=== PATIENT | female | born 1935 | race Caucasian/White ===

== ENCOUNTER → 2017-04-21 | Outpatient (CLI) | payer MEDICARE, OTHER ==
[~2017-04-21] MED LIST: ACYC5CRE2 TP; ALPR0.25 PO; AZEL137S3 NS; FAMO-63 PO; FLUT9.9S NS; LOSA50TA2 PO; MUPI15CR TP; OLOP5DRO EACHEYE; TIZA4TAB PO; UBID100C26 PO; VALA10005 PO; lidoderm patch
--- NOTE | 2017-04-21 17:32 | PAIN ---
DATE OF SERVICE: 04/21/2017 INITIAL CONSULTATION FOR PAIN CLINIC. CHIEF COMPLAINT: Low back pain. SECONDARY COMPLAINT: Neck and shoulder pain. HISTORY OF PRESENT ILLNESS: This is an 81-year-old female who presents with history of pain for about 2 years, increasing without a specific injury or action that she is aware of, increasing in the low back especially, but also in the neck and shoulders, with radiation in the bilateral upper extremities, mostly in the posterior aspect of the triceps and elbows, also radiation in the low back into the posterior gluteus and lateral thighs with activity, worse with walking and standing, change in positions, worse in the morning when she first wakes up, but she sleeps well at night. It is better with sitting down or lying down, and again, her low back pain is her chief complaint today. The patient reports she is using a cane to walk with holding in her right hand, also using pain patches and some pain spray that seems to help by about 20% as well. The patient did have physical therapy on and off that she is having it currently, but is mainly just stretching and strengthening exercises as she has been doing by her report. The patient reports the pain is across the shoulders and the upper extremities is noted as well as low back and lower extremities is noted, intermittent intensity, changes during the day, worse with activity, standing, walking, also sharp, stabbing, throbbing, can be cramping and aching as well, again worse in the mornings. 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 The patient reports no loss of motor function, but she seems unstable on her feet and feels out of balance when she is walking when the pain is at its worse. Again, sitting or lying down would decrease the pain significantly. PAST MEDICAL HISTORY: Significant for hypertension, arthritis, gastroesophageal reflux. PREVIOUS SURGERY: Includes partial hysterectomy, appendectomy. CURRENT MEDICATIONS: Outlines in the patient's chart including acyclovir, alprazolam, Astelin nasal spray, Q-enzyme 10, Vibramycin, fluticasone, famotidine, ketoconazole, lidocaine, losartan, mupirocin, Bactroban ointment, atenolol ophthalmic drops, sodium chloride nasal spray, tizanidine and Valtrex. ALLERGIES: ALLERGIC TO AMLODIPINE, CITALOPRAM, LISINOPRIL, PENICILLIN, METOPROLOL. FAMILY HISTORY: Significant for no major medical problems or conditions that she is aware of. SOCIAL HISTORY: The patient does not drink, does not smoke. She is , lives in [place], [place], is currently retired. REVIEW OF SYSTEMS: The patient's review of systems is positive for those items mentioned in history of present illness. All systems reviewed and otherwise negative. It is complete, full and well documented on the patient's chart. PHYSICAL EXAMINATION: VITAL SIGNS: Today, blood pressure is 158/90, pulse 72, respirations 16, temperature is 98.0 degrees Fahrenheit. Height is 5 feet 5 inches, weight is 154 pounds. GENERAL: The patient is awake, alert, oriented, appropriate, very pleasant demeanor. HEENT: Head shows normocephalic, atraumatic. Extraocular movements are intact, symmetrical. Oral cavity, mucous membranes are moist and pink. Dentition is intact. NECK: Shows anterior throat supple without palpable lymphadenopathy noted. Swallow reflex is symmetrical. CHEST: Shows normal on inspection. Breath sounds clear to auscultation bilaterally. HEART: Shows S1 and S2 clear. No murmurs auscultated. ABDOMEN: Soft, nontender, nondistended. No palpable organomegaly. No rebound or guarding demonstrated. BACK: Shows spine grossly in midline, normal-appearing cervical lordotic curvature, thoracic kyphotic curvature, and lumbar lordotic curvatures. The patient's neck shows posterior cervical musculature, symmetrical on inspection, with palpation shows some moderate tenderness in the inferior aspect of the cervical paraspinous musculature into the superior medial trapezius, right essentially equal to left and is symmetrical without evidence of atrophy, hypertrophy, no radiation of pain, no trigger points. The thoracic spine shows supple paraspinous musculature without significant pain reported. Lumbar distribution shows some moderate tenderness throughout the upper, middle and lower distribution of the paraspinous musculature, although has not had significant tenderness over the spinous processes, even at the low thoracic distribution in the area of her compression fracture very mildly tender with palpation. The patient has some tenderness in the lower lumbar distribution more than the upper, diffusely in the paraspinous muscles, but without radiation. The patient has no tenderness over the sacrum or sacroiliac regions. The patient shows good rotation and motion of the lumbar spine, both laterally greater than 10 degrees right and left as well as extension greater than 10 degrees, forward flexion 45 degrees without significant pain reported. The patient's neck shows good rotation past 45 degrees, right and left lateral as well as full extension and full forward flexion as well. The patient's extremities showed upper extremity deep tendon reflexes 2+ in the biceps and triceps tendons. Motor exam is approximately 4 on a scale 5 with board certified orthodontist strength, biceps and triceps flexion, but is symmetrical and equal. Peripheral pulses are 2+ radial distribution. Lower extremities showed deep tendon reflexes 1+ in the patellar tendons. Motor exam is strong with dorsiflexion, extension, quadriceps and hamstring flexion at about 4 on a scale of 5, but again symmetrical. Peripheral pulses are 1+ posterior tibial and dorsalis pedis pulses. No peripheral edema is noted in any of the extremities. Straight leg raise found to be negative for reproduction of radicular symptoms. [place] and Gray maneuvers are negative bilaterally as well. The patient is able to stand, stand on her toes, but loses balance fairly quickly. She is walking with a normal appearing gait, however and again does not have her cane with her today, but reports that she does use one when she is going longer distances, has a slight shuffling in her gait, but does not appear to favor the right or left lower extremity significantly. IMPRESSION: 1. This is an 81-year-old female with approximately 2-year history of increasing pain in the base of the neck and shoulders as well as the upper extremities in a radicular fashion, also low back pain in radicular qualities in the lower extremities as well. 2. X-rays of the cervical and lumbar spine as noted. 3. Hypertension. 4. Arthritis. PLAN: Options were discussed with the patient including conservative medical management, physical therapy, interventional techniques. She would like to follow more conservative course at this time. We discussed adding some cervical and lumbar traction to her physical therapy regimen, and she would like to try this prior to considering any interventional techniques. We did discuss possible lumbar and cervical epidural steroid injections in the future, but we will go with the more conservative route with physical therapy and adding traction. The patient was encouraged to complete the exercises and do them at home as well. She will follow up once physical therapy has been completed. VIDHYA MCCRACKEN MD DR: CASSIDY/sandra JOB#: [id number] / [id number]
== END | disposition home or self-care (01) ==
LOC: PNCL 10:08
PROVIDERS: ATTEND Anesthesiology
DX: M51.36 Other intervertebral disc degeneration, lumbar region (principal); I10 Essential (primary) hypertension; K21.9 Gastro-esophageal reflux disease without esophagitis; M46.86 Other specified inflammatory spondylopathies, lumbar region; M43.16 Spondylolisthesis, lumbar region
CPT/HCPCS: G0463

== ENCOUNTER 2020-02-20 15:01 | Inpatient (IN) | payer MEDICARE, OTHER ==
[~2020-02-20] VITALS: Ht 167.6 cm; Wt 53.0 kg
[~2020-02-20 15:01] MED LIST changes: +LOSA-73 PO; -LOSA50TA2 PO; -TIZA4TAB PO; +TIZA4TAB2 PO
[2020-02-20 15:32] LABS: BILIRUBIN,URINE NEGATIVE (NEG); CLARITY,URINE CLOUDY; COLOR,URINE YELLOW; NITRITE,URINE POSITIVE (NEG); PROTEIN,URINE NEGATIVE (NEG-TRACE); UROBILINOGEN,URINE 0.2 mg/dL (0.2 mg/dL)
[2020-02-20 15:34] LABS: BASO # 0.1 x10^3/uL (0.0-0.2); BASO % 0 % (0-3); EOS % 0 % (0-3); HEMATOCRIT 36.8 % (36.0-47.0); LYMPH # 0.4 x10^3/uL (1.0-4.8); LYMPH % 2 % (24-48); MEAN CORPUSCULAR HEMOGLOBIN 29 pg (25-35); MEAN CORPUSCULAR HGB CONC 33 g/dL (31-37); MEAN CORPUSCULAR VOLUME 88 fL (79-100); MONO # 0.7 x10^3/uL (0.0-1.1); MONO % 4 % (0-9); NEUT # 17.1 x10^3/uL (1.8-7.7); NEUT % 93 % (31-73); PLATELET COUNT 373 x10^3/uL (140-400); RED BLOOD COUNT 4.17 x10^6/uL (3.50-5.40); RED CELL DISTRIBUTION WIDTH 13.2 % (11.5-14.5); WHITE BLOOD COUNT 18.3 x10^3/uL (4.0-11.0)
[2020-02-20 15:40] LABS: PROTHROMBIN TIME PATIENT 13.2 SEC (11.7-14.0)
[2020-02-20 15:45] LABS: BACTERIA,URINE MANY /HPF (0-FEW); RBC,URINE 0 /HPF (0-2); SQUAMOUS EPITHELIAL CELL,UR MANY /LPF
[2020-02-20] MEDS ORDERED: ONDANSETRON PF 4 MG/2 ML VIAL. IVP ONE (15:45)
[2020-02-20] MEDS ORDERED: MORPHINE SULFATE 10 MG/ML VIAL. IV ONE ×2 (15:45→18:15)
[2020-02-20 15:46] LABS: WBC,URINE >40 /HPF (0-4)
--- NOTE | 2020-02-20 15:48 | RAD ---
EXAM: Chest, single view. HISTORY: Fall. COMPARISON: None. FINDINGS: A frontal view of the chest is obtained. There is chronic appearing diffuse increased interstitial opacity. There is superimposed left lower lobe infiltrate or scarring. There are chronic appearing right rib fractures. The heart is normal in size. There is no pneumothorax or pleural effusion. There is a small nodular opacity overlying the left costophrenic angle. IMPRESSION: 1. Suspected left lower lobe infiltrate or scarring superimposed on chronic interstitial prominence. 2. Multiple chronic appearing rib fractures. 3. Small nodular opacity overlying the left costophrenic angle. Short-term radiographic follow-up can be performed to exclude a noncalcified nodule in this location. Electronically signed by: Mica Allen MD (02/20/2020 3:45 PM) [id number]
[2020-02-20 15:50] LABS: CALCIUM 8.9 mg/dL (8.5-10.1); CREATININE 0.7 mg/dL (0.6-1.0); GFR 79.5; POTASSIUM 3.9 mmol/L (3.5-5.1)
--- NOTE | 2020-02-20 15:55 | RAD ---
Study: CR HIP LEFT 2V WITH PELVIS Indication: Pain after a fall. Comparison: None. Findings: Comminuted/angulated left femur intertrochanteric fracture. The femoral neck is horizontal and creates a 90 degrees angle with the femoral shaft. Displacement of both the greater and lesser trochanters. The fractured intertrochanteric region is somewhat hyperlucent. The femoral head remains seated within the acetabulum. Incomplete assessment of the sacrum due to osteopenia and bowel gas. Age-indeterminate compression deformity at what is favored to be L4. Impression: 1. Acute left intertrochanteric femur fracture, detailed above. 2. The intertrochanteric left femur appears hyperlucent but this is indeterminant given the degree of fracturing. No lytic osseous lesion is seen throughout the rest of the partially assessed pelvis but recommend correlation for any known malignancy to suggest a pathologic fracture. 3. Age indeterminant compression deformity of L4. Electronically signed by: TREVOR HOBBS MD (02/20/2020 3:52 PM) [id number]
[2020-02-20 15:57] LABS: % BANDS 4 % (0-9); % LYMPHS 1 % (24-48); % MONOS 3 % (0-10); % SEGS 92 % (35-66); PLT ESTIMATE ADEQUATE (ADEQUATE)
[2020-02-20 16:02] LABS: ALBUMIN 3.6 g/dL (3.4-5.0); ALBUMIN/GLOBULIN RATIO 1.2 (1.0-1.7); MAGNESIUM 2.2 mg/dL (1.8-2.4); TOTAL BILIRUBIN 0.3 mg/dL (0.2-1.0); TOTAL PROTEIN 6.6 g/dL (6.4-8.2)
--- NOTE | 2020-02-20 16:30 | PHYS DOC ---
Past Medical History Past Medical History: Dementia, Hypertension, UTI Additional Past Medical Histor: FREQUENT FALLS Past Surgical History: Other Additional Past Surgical Histo: UNKNOWN Smoking Status: Never Smoker Alcohol Use: None General Adult EDM: Chief Complaint: HIP PAIN HPI: HPI: Patient is a 84 year old female with history of dementia, hypertension, who [facility] to be evaluated for left hip fracture. senior living staff report patient fell in her room, it was a witnessed fall. Patient states she was making her bed and fell. Patient denies any loss of consciousness. senior living staff stated patient did not have any loss of consciousness when she fell. They deny patient hitting her head on the ground. Review of Systems: Review of Systems: Constitutional: Denies fever or chills. [] Eyes: Denies change in visual acuity. [] HENT: Denies nasal congestion or sore throat. [] Respiratory: Denies cough or shortness of breath. [] Cardiovascular: Denies chest pain or edema. [] GI: Denies abdominal pain, nausea, vomiting, bloody stools or diarrhea. [] : Denies dysuria. [] Musculoskeletal: Left hip fracture Integument: Denies rash. [] Neurologic: Denies headache, focal weakness or sensory changes. [] Psychiatric: Denies depression or anxiety. [] Heart Score: Risk Factors: Risk Factors: DM, Current or recent (<one month) smoker, HTN, HLP, family history of CAD, obesity. Risk Scores: Score 0 - 3: 2.5% MACE over next 6 weeks - Discharge Home Score 4 - 6: 20.3% MACE over next 6 weeks - Admit for Clinical Observation Score 7 - 10: 72.7% MACE over next 6 weeks - Early Invasive Strategies Current Medications: Current Medications Medications (Trade) Dose Ordered Sig/Lesly Start Time Stop Time Status Last Admin Dose Admin Morphine Sulfate (Morphine Sulfate) 5 mg 1X ONCE 02/20/20 15:45 02/20/20 15:46 DC 02/20/20 16:17 5 MG Ondansetron HCl (Zofran) 4 mg 1X ONCE 02/20/20 15:45 02/20/20 15:46 DC 02/20/20 16:17 4 MG Allergies: Allergies: Allergies Coded Allergies Type Severity Reaction Last Updated Verified Penicillins Allergy Unknown 02/20/20 Yes amlodipine Allergy Unknown 02/20/20 Yes citalopram Allergy Unknown 02/20/20 Yes lisinopril Allergy Unknown 02/20/20 Yes metoprolol Allergy Unknown 02/20/20 Yes nitrofurantoin Allergy Unknown 02/20/20 Yes Physical Exam: PE: Constitutional: Well developed, well nourished, no acute distress, non-toxic appearance. [] HENT: Normocephalic, atraumatic, bilateral external ears normal, oropharynx moist, no oral exudates, nose normal. [] Eyes: PERRLA, EOMI, conjunctiva normal, no discharge. [] Neck: Normal range of motion, no tenderness, supple, no stridor. [] Cardiovascular:Heart rate regular rhythm, no murmur [] Lungs & Thorax: Bilateral breath sounds clear to auscultation [] Abdomen: Bowel sounds normal, soft, no tenderness, no masses, no pulsatile masses. [] Skin: Warm, dry, no erythema, no rash. [] Back: No tenderness, no CVA tenderness. [] Extremities: Left lower extremity is internally rotated. Limited ROM to the left lower extremity, +2 left pedal pulse. Cap refill less than 2 seconds to left lower extremity. Neurologic: Alert and oriented X 1, normal motor function, normal sensory func tion, no focal deficits noted. [] Psychologic: Affect normal, judgement normal, mood normal. [] Current Patient Data: Labs: Laboratory Tests Test 02/20/20 15:15 02/20/20 15:20 White Blood Count 18.3 x10^3/uL (4.0-11.0) H Red Blood Count 4.17 x10^6/uL (3.50-5.40) Hemoglobin 12.0 g/dL (12.0-15.5) Hematocrit 36.8 % (36.0-47.0) Mean Corpuscular Volume 88 fL (79-100) Mean Corpuscular Hemoglobin 29 pg (25-35) Mean Corpuscular Hemoglobin Concent 33 g/dL (31-37) Red Cell Distribution Width 13.2 % (11.5-14.5) Platelet Count 373 x10^3/uL (140-400) Neutrophils (%) (Auto) 93 % (31-73) H Lymphocytes (%) (Auto) 2 % (24-48) L Monocytes (%) (Auto) 4 % (0-9) Eosinophils (%) (Auto) 0 % (0-3) Basophils (%) (Auto) 0 % (0-3) Neutrophils # (Auto) 17.1 x10^3/uL (1.8-7.7) H Lymphocytes # (Auto) 0.4 x10^3/uL (1.0-4.8) L Monocytes # (Auto) 0.7 x10^3/uL (0.0-1.1) Eosinophils # (Auto) 0.0 x10^3/uL (0.0-0.7) Basophils # (Auto) 0.1 x10^3/uL (0.0-0.2) Segmented Neutrophils % 92 % (35-66) H Band Neutrophils % 4 % (0-9) Lymphocytes % 1 % (24-48) L Monocytes % 3 % (0-10) Platelet Estimate Adequate (ADEQUATE) Prothrombin Time 13.2 SEC (11.7-14.0) Prothrombin Time INR 1.0 (0.8-1.1) Sodium Level 136 mmol/L (136-145) Potassium Level 3.9 mmol/L (3.5-5.1) Chloride Level 101 mmol/L (98-107) Carbon Dioxide Level 25 mmol/L (21-32) Anion Gap 10 (6-14) Blood Urea Nitrogen 19 mg/dL (7-20) Creatinine 0.7 mg/dL (0.6-1.0) Estimated GFR (Cockcroft-Gault) 79.5 BUN/Creatinine Ratio 27 (6-20) H Glucose Level 140 mg/dL (70-99) H Calcium Level 8.9 mg/dL (8.5-10.1) Magnesium Level 2.2 mg/dL (1.8-2.4) Total Bilirubin 0.3 mg/dL (0.2-1.0) Aspartate Amino Transferase (AST) 35 U/L (15-37) Alanine Aminotransferase (ALT) 25 U/L (14-59) Alkaline Phosphatase 90 U/L (46-116) Troponin I Quantitative 0.032 ng/mL (0.000-0.055) Total Protein 6.6 g/dL (6.4-8.2) Albumin 3.6 g/dL (3.4-5.0) Albumin/Globulin Ratio 1.2 (1.0-1.7) Lipase 219 U/L (73-393) Thyroid Stimulating Hormone (TSH) 1.445 uIU/mL (0.358-3.74) Urine Collection Type U cath Urine Color Yellow Urine Clarity Cloudy Urine pH 8.0 (<5.0-8.0) Urine Specific [place] 1.010 (1.000-1.030) Urine Protein Negative mg/dL (NEG-TRACE) Urine Glucose (UA) Negative mg/dL (NEG) Urine Ketones (Stick) Negative mg/dL (NEG) Urine Blood Negative (NEG) Urine Nitrite Positive (NEG) Urine Bilirubin Negative (NEG) Urine Urobilinogen Dipstick 0.2 mg/dL (0.2 mg/dL) Urine Leukocyte Esterase Large (NEG) Urine RBC 0 /HPF (0-2) Urine WBC >40 /HPF (0-4) Urine Squamous Epithelial Cells Many /LPF Urine Bacteria Many /HPF (0-FEW) Laboratory Tests 02/20/20 15:15 Laboratory Tests 02/20/20 15:15 Vital Signs: Vital Signs Date Time Temp Pulse Resp B/P (MAP) Pulse Ox O2 Delivery O2 Flow Rate FiO2 02/20/20 15:37 98.0 89 18 182/80 (114) 96 Room Air 98.0 EKG: EK interpreted by Dr. Daniels sinus rhythm HR 93 no STEMI[] Radiology/Procedures: Radiology/Procedures: []PROCEDURE: HIP LEFT 2V WITH PELVIS Study: CR HIP LEFT 2V WITH PELVIS Indication: Pain after a fall. Comparison: None. Findings: Comminuted/angulated left femur intertrochanteric fracture. The femoral neck is horizontal and creates a 90 degrees angle with the femoral shaft. Displacement of both the greater and lesser trochanters. The fractured intertrochanteric region is somewhat hyperlucent. The femoral head remains seated within the acetabulum. Incomplete assessment of the sacrum due to osteopenia and bowel gas. Age-indeterminate compression deformity at what is favored to be L4. Impression: 1. Acute left intertrochanteric femur fracture, detailed above. 2. The intertrochanteric left femur appears hyperlucent but this is indeterminant given the degree of fracturing. No lytic osseous lesion is seen throughout the rest of the partially assessed pelvis but recommend correlation for any known malignancy to suggest a pathologic fracture. 3. Age indeterminant compression deformity of L4. Electronically signed by: TREVOR HOBBS MD (02/20/2020 3:52 PM) [id number] DICTATED and SIGNED BY: TREVOR HOBBS MD DATE: 02/20/20 1552 Course & Med Decision Making: Course & Med Decision Making Pertinent Labs and Imaging studies reviewed. (See chart for details) This is a 84-year-old female patient who presents to the ED today with left hip fracture. [facility] Left hip x-rays interpreted by radiologist were noted for Acute left intertrochanteric femur fracture,-fracture suspicious of a pathologic fx in origin. + UTI-started on antibiotics. Spoke with Dr. Peoples who will f/u with patient Spoke with Dr. العلي who accepted patient for admission Dragon Disclaimer: Frances Disclaimer: This electronic medical record was generated, in whole or in part, using a voice recognition dictation system. Departure Departure Impression: Primary Impression: Closed left hip fracture Qualified Codes: S72.002A - Fracture of unspecified part of neck of left femur, initial encounter for closed fracture Additional Impressions: UTI (urinary tract infection) Qualified Codes: N39.0 - Urinary tract infection, site not specified Fall Qualified Codes: W19.XXXA - Unspecified fall, initial encounter Disposition: ADMITTED INPATIENT Condition: STABLE Referrals: MARIA DE JESUS VALDEZ MD (PCP) Justicifation of Admission Dx: Justifications for Admission: Justification of Admission Dx: Yes Fracture: Fracture ROHIT ELLISON APRN Feb 20, 2020 16:30
[2020-02-20] MEDS ORDERED: ONDANSETRON PF 4 MG/2 ML VIAL. IV PRN (16:45)
[2020-02-20] MEDS ORDERED: cefTRIAXone IV Push 1 GM VIAL. IVP ONE (16:45)
[2020-02-20] MEDS ORDERED: IV NORMAL SALINE 1000ML BAG 1,000 ML IV ONE (16:45)
[2020-02-20] MEDS ORDERED: MORPHINE SULFATE 4 MG/ML VIAL. IV PRN (16:45)
--- NOTE | 2020-02-20 18:00 | PDOC1 ---
History and Physical Date of Service: DOS: DATE: 02/20/20 TIME: 17:58 Chief Complaint: Chief Complain: Fall from standing History of Present Illness: HPI: 84 year old female with history of dementia, hypertension, who presents the ED today from a assisted to be evaluated for left hip fracture. longterm staff report patient fell in her room, it was a witnessed fall. Patient states she was making her bed and fell. Patient denies any loss of consciousness. longterm staff stated patient did not have any loss of consciousness when she fell. They deny patient hitting her head on the ground. Patient seen and examined bedside in the ED. When questioned about how the patient was brought to the hospital, patient responded "I fell in the garden ". Patient currently voices no complaints of pain at this point. Past Medical/Surgical History: PMH/PSH: Past Medical History: Dementia, Hypertension, UTI, FREQUENT FALLS Past Surgical History: None Allergies: Allergies: Coded Allergies: Penicillins (Verified Allergy, Unknown, 02/20/20) amlodipine (Verified Allergy, Unknown, 02/20/20) citalopram (Verified Allergy, Unknown, 02/20/20) lisinopril (Verified Allergy, Unknown, 02/20/20) metoprolol (Verified Allergy, Unknown, 02/20/20) nitrofurantoin (Verified Allergy, Unknown, 02/20/20) Family History: Family History: Reviewed and none reported Social History: Social History: Denies alcohol, tobacco, drug abuse Current Medications: Current Medications Current Medications Morphine Sulfate (Morphine Sulfate) 5 mg 1X ONCE IV Last administered on 02/20/20at 16:17; Start 02/20/20 at 15:45; Stop 02/20/20 at 15:46; Status DC Ondansetron HCl (Zofran) 4 mg 1X ONCE IVP Last administered on 02/20/20at 16:17; Start 02/20/20 at 15:45; Stop 02/20/20 at 15:46; Status DC Ondansetron HCl (Zofran) 4 mg PRN Q8HRS PRN IV NAUSEA/VOMITING; Start 02/20/20 at 16:45; Stop 02/21/20 at 16:44 Morphine Sulfate (Morphine Sulfate) 4 mg PRN Q2HR PRN IV PAIN; Start 02/20/20 at 16:45; Stop 02/21/20 at 16:44 Sodium Chloride 1,000 ml @ 75 mls/hr 1X ONCE IV ; Start 02/20/20 at 16:45; Stop 02/21/20 at 06:04 Ceftriaxone Sodium (Rocephin) 1 gm 1X ONCE IVP ; Start 02/20/20 at 16:45; Stop 02/20/20 at 16:47; Status DC Active Scripts Active Reported Valtrex (Valacyclovir Hcl) 1,000 Mg Tablet 2 Tab PO BID Tizanidine Hcl 4 Mg Tablet 1 Tab PO QHS Patanol (Olopatadine Hcl) 5 Ml Drops 1 Drop EACHEYE BID Bactroban Cream (Mupirocin) 15 Gm Cream..g. 1 Paulino TP BID Cozaar (Losartan Potassium) 50 Mg Tablet 50 Mg PO DAILY [lidoderm patch] PRN Flonase Allergy Relief (Fluticasone Propionate) 9.9 Ml Tully.susp 2 Sprays NS DAILY Pepcid (Famotidine) 20 Mg Tablet 20 Mg PO BID Coq-10 (Ubidecarenone) 100 Mg Capsule 200 Mg PO DAILY Azelastine Hcl 137 Mcg/0.137 Ml Tully.pump 2 Tully NS BID Xanax (Alprazolam) 0.25 Mg Tablet 1 Tab PO BID PRN Zovirax (Acyclovir) 5 Gm Cream..g. 1 Paulino TP 5XDAY ROS: Review of Systems Review of System REVIEW OF SYSTEMS: GENERAL: Denies weakness SKIN: No bruising, hair changes or rashes. EYES: No blurred, double or loss of vision. NOSE AND THROAT: No history of nosebleeds, hoarseness or sore throat. HEART: No history of palpitations, chest pain or shortness of breath on exertion. LUNGS: Denies cough, hemoptysis, wheezing or shortness of breath. GASTROINTESTINAL: Denies changes in appetite, nausea, vomiting, diarrhea or constipation. GENITOURINARY: No history of frequency, urgency, hesitancy or nocturia. NEUROLOGIC: Denies history of numbness, tingling, or tremor. PSYCHIATRIC: No history of panic, anxiety or depression. ENDOCRINE: No history of heat or cold intolerance, polyuria or polydipsia. EXTREMITIES: Denies joint pain, pain on walking or stiffness. Physical Exam: Vital Signs: Vital Signs Date Time Temp Pulse Resp B/P (MAP) Pulse Ox O2 Delivery O2 Flow Rate FiO2 02/20/20 15:37 98.0 89 18 182/80 (114) 96 Room Air 98.0 Physcial Exam: GEN: No apparent distress. Alert and oriented HEENT: Normal cephalic, atraumatic, external auditory canals are patent EYES: Extraocular muscles are intact, pupil are equally round and reactive to light and accommodation MUSCULOSKELETAL: Well developed , well nourished, good range of motion ENDOCRINE: No thyromegaly was palpated LYMPHATICS: No cervical chain or axillary nodes were noted HEMATOPOIETIC: No bruising NECK: Supple, no JVD, no thyromegaly was noted LUNGS: Clear to auscultation in all lung corbin without rhonchi or wheezing HEART: RRR, S!, S2 present. Peripheral pulses intact, no obvious murmurs noted ABDOMEN: Soft, nontender. Positive bowel sounds, no organomegaly, normal bowel sounds EXTREMITIES: Without clubbing, cyanosis, or edema. Pedal pulses intact. Negative Homans sign NEUROLOGIC: Normal speech and tone. A&O x 3, moves all extremities, no obvious focal deficits PSYCHIATRIC: Normal affect, normal mood. Stable SKIN: Multiple lesions throughout the body that appears to look like seborrheic keratosis vs Treser-lesat sign VASCULAR: Good capillary refill, neurovascular bundle appears to be intact Labs: Labs: Laboratory Tests Test 02/20/20 15:15 02/20/20 15:20 White Blood Count 18.3 x10^3/uL (4.0-11.0) Red Blood Count 4.17 x10^6/uL (3.50-5.40) Hemoglobin 12.0 g/dL (12.0-15.5) Hematocrit 36.8 % (36.0-47.0) Mean Corpuscular Volume 88 fL (79-100) Mean Corpuscular Hemoglobin 29 pg (25-35) Mean Corpuscular Hemoglobin Concent 33 g/dL (31-37) Red Cell Distribution Width 13.2 % (11.5-14.5) Platelet Count 373 x10^3/uL (140-400) Neutrophils (%) (Auto) 93 % (31-73) Lymphocytes (%) (Auto) 2 % (24-48) Monocytes (%) (Auto) 4 % (0-9) Eosinophils (%) (Auto) 0 % (0-3) Basophils (%) (Auto) 0 % (0-3) Neutrophils # (Auto) 17.1 x10^3/uL (1.8-7.7) Lymphocytes # (Auto) 0.4 x10^3/uL (1.0-4.8) Monocytes # (Auto) 0.7 x10^3/uL (0.0-1.1) Eosinophils # (Auto) 0.0 x10^3/uL (0.0-0.7) Basophils # (Auto) 0.1 x10^3/uL (0.0-0.2) Segmented Neutrophils % 92 % (35-66) Band Neutrophils % 4 % (0-9) Lymphocytes % 1 % (24-48) Monocytes % 3 % (0-10) Platelet Estimate Adequate (ADEQUATE) Prothrombin Time 13.2 SEC (11.7-14.0) Prothromb Time International Ratio 1.0 (0.8-1.1) Sodium Level 136 mmol/L (136-145) Potassium Level 3.9 mmol/L (3.5-5.1) Chloride Level 101 mmol/L (98-107) Carbon Dioxide Level 25 mmol/L (21-32) Anion Gap 10 (6-14) Blood Urea Nitrogen 19 mg/dL (7-20) Creatinine 0.7 mg/dL (0.6-1.0) Estimated GFR (Cockcroft-Gault) 79.5 BUN/Creatinine Ratio 27 (6-20) Glucose Level 140 mg/dL (70-99) Calcium Level 8.9 mg/dL (8.5-10.1) Magnesium Level 2.2 mg/dL (1.8-2.4) Total Bilirubin 0.3 mg/dL (0.2-1.0) Aspartate Amino Transf (AST/SGOT) 35 U/L (15-37) Alanine Aminotransferase (ALT/SGPT) 25 U/L (14-59) Alkaline Phosphatase 90 U/L (46-116) Troponin I Quantitative 0.032 ng/mL (0.000-0.055) Total Protein 6.6 g/dL (6.4-8.2) Albumin 3.6 g/dL (3.4-5.0) Albumin/Globulin Ratio 1.2 (1.0-1.7) Lipase 219 U/L (73-393) Thyroid Stimulating Hormone (TSH) 1.445 uIU/mL (0.358-3.74) Urine Collection Type U cath Urine Color Yellow Urine Clarity Cloudy Urine pH 8.0 (<5.0-8.0) Urine Specific [place] 1.010 (1.000-1.030) Urine Protein Negative mg/dL (NEG-TRACE) Urine Glucose (UA) Negative mg/dL (NEG) Urine Ketones (Stick) Negative mg/dL (NEG) Urine Blood Negative (NEG) Urine Nitrite Positive (NEG) Urine Bilirubin Negative (NEG) Urine Urobilinogen Dipstick 0.2 mg/dL (0.2 mg/dL) Urine Leukocyte Esterase Large (NEG) Urine RBC 0 /HPF (0-2) Urine WBC >40 /HPF (0-4) Urine Squamous Epithelial Cells Many /LPF Urine Bacteria Many /HPF (0-FEW) Laboratory Tests Test 02/20/20 15:15 02/20/20 15:20 White Blood Count 18.3 x10^3/uL (4.0-11.0) Red Blood Count 4.17 x10^6/uL (3.50-5.40) Hemoglobin 12.0 g/dL (12.0-15.5) Hematocrit 36.8 % (36.0-47.0) Mean Corpuscular Volume 88 fL (79-100) Mean Corpuscular Hemoglobin 29 pg (25-35) Mean Corpuscular Hemoglobin Concent 33 g/dL (31-37) Red Cell Distribution Width 13.2 % (11.5-14.5) Platelet Count 373 x10^3/uL (140-400) Neutrophils (%) (Auto) 93 % (31-73) Lymphocytes (%) (Auto) 2 % (24-48) Monocytes (%) (Auto) 4 % (0-9) Eosinophils (%) (Auto) 0 % (0-3) Basophils (%) (Auto) 0 % (0-3) Neutrophils # (Auto) 17.1 x10^3/uL (1.8-7.7) Lymphocytes # (Auto) 0.4 x10^3/uL (1.0-4.8) Monocytes # (Auto) 0.7 x10^3/uL (0.0-1.1) Eosinophils # (Auto) 0.0 x10^3/uL (0.0-0.7) Basophils # (Auto) 0.1 x10^3/uL (0.0-0.2) Segmented Neutrophils % 92 % (35-66) Band Neutrophils % 4 % (0-9) Lymphocytes % 1 % (24-48) Monocytes % 3 % (0-10) Platelet Estimate Adequate (ADEQUATE) Prothrombin Time 13.2 SEC (11.7-14.0) Prothromb Time International Ratio 1.0 (0.8-1.1) Sodium Level 136 mmol/L (136-145) Potassium Level 3.9 mmol/L (3.5-5.1) Chloride Level 101 mmol/L (98-107) Carbon Dioxide Level 25 mmol/L (21-32) Anion Gap 10 (6-14) Blood Urea Nitrogen 19 mg/dL (7-20) Creatinine 0.7 mg/dL (0.6-1.0) Estimated GFR (Cockcroft-Gault) 79.5 BUN/Creatinine Ratio 27 (6-20) Glucose Level 140 mg/dL (70-99) Calcium Level 8.9 mg/dL (8.5-10.1) Magnesium Level 2.2 mg/dL (1.8-2.4) Total Bilirubin 0.3 mg/dL (0.2-1.0) Aspartate Amino Transf (AST/SGOT) 35 U/L (15-37) Alanine Aminotransferase (ALT/SGPT) 25 U/L (14-59) Alkaline Phosphatase 90 U/L (46-116) Troponin I Quantitative 0.032 ng/mL (0.000-0.055) Total Protein 6.6 g/dL (6.4-8.2) Albumin 3.6 g/dL (3.4-5.0) Albumin/Globulin Ratio 1.2 (1.0-1.7) Lipase 219 U/L (73-393) Thyroid Stimulating Hormone (TSH) 1.445 uIU/mL (0.358-3.74) Urine Collection Type U cath Urine Color Yellow Urine Clarity Cloudy Urine pH 8.0 (<5.0-8.0) Urine Specific [place] 1.010 (1.000-1.030) Urine Protein Negative mg/dL (NEG-TRACE) Urine Glucose (UA) Negative mg/dL (NEG) Urine Ketones (Stick) Negative mg/dL (NEG) Urine Blood Negative (NEG) Urine Nitrite Positive (NEG) Urine Bilirubin Negative (NEG) Urine Urobilinogen Dipstick 0.2 mg/dL (0.2 mg/dL) Urine Leukocyte Esterase Large (NEG) Urine RBC 0 /HPF (0-2) Urine WBC >40 /HPF (0-4) Urine Squamous Epithelial Cells Many /LPF Urine Bacteria Many /HPF (0-FEW) Images: Images hip x-ray Impression: 1. Acute left intertrochanteric femur fracture, detailed above. 2. The intertrochanteric left femur appears hyperlucent but this is indeterminant given the degree of fracturing. No lytic osseous lesion is seen throughout the rest of the partially assessed pelvis but recommend correlation for any known malignancy to suggest a pathologic fracture. 3. Age indeterminant compression deformity of L4. CXR IMPRESSION: 1. Suspected left lower lobe infiltrate or scarring superimposed on chronic interstitial prominence. 2. Multiple chronic appearing rib fractures. 3. Small nodular opacity overlying the left costophrenic angle. Short-term radiographic follow-up can be performed to exclude a noncalcified nodule in this location. Assessment/Plan Assessment/Plan Left intertrochanteric femur fracture due to mechanical fall from standing Leukocytosis due to trauma Acute UTI Concern for left lower lobe pneumonia Small nodular opacity overlying the left costophrenic angle Multiple falls Dementia Hypertension Admit to medicine for further work-up Ortho consult Pulmonology consult ID consult PT OT Fall precautions Continue IV ceftriaxone and azithromycin antibiotics Pending blood and urine cultures Lovenox for DVT prophylaxis ADA diet Full code Discussed with RN and SW Disposition pending Ortho, ID, pulmonology evaluations Surrogate decision maker is the Viet Perez Justifications for Admission Other Justification POLO DENTON MD Feb 20, 2020 18:00
[2020-02-20] MEDS ORDERED: SENNOSIDES 8.6 MG TABLET PO PRN (18:15)
[2020-02-20] MEDS ORDERED: MAGNESIUM SULFATE 2GM 50 ML IV SCH (18:15)
[2020-02-20] MEDS ORDERED: POTASSIUM CHLORIDE 10MEQ 100 ML IV SCH (18:15)
[2020-02-20] MEDS ORDERED: POTASSIUM CHLORIDE 10MEQ 100 ML IV PRN (18:15)
[2020-02-20] MEDS ORDERED: POTASSIUM CHLORIDE 20 MEQ TABLET.ER. PO PRN (18:15)
[2020-02-20] MEDS ORDERED: ONDANSETRON PF 4 MG/2 ML VIAL. IVP PRN (18:15)
[2020-02-20] MEDS ORDERED: DOCUSATE SODIUM 100 MG CAPSULE. PO PRN (18:15)
[2020-02-20] MEDS ORDERED: DEXTROSE 50% 25 GM / 50ML DISP.SYRIN. IV PRN (18:15)
[2020-02-20] MEDS ORDERED: ELECTROLYTE (NON-ICU) PROTOCOL MC PRN (18:30)
[2020-02-20 19:00] VITALS: BP 180/110
[2020-02-20] MEDS ORDERED: MAGNESIUM OXIDE 400 MG TABLET PO SCH (21:00)
[2020-02-20] MEDS ORDERED: ENOXAPARIN 40 MG/0.4 ML SYRINGE. SQ SCH (21:00)
--- NOTE | 2020-02-20 21:00 | NUR ---
Patient admitted to unit around 1900 hours. Patient currently has hip fracture and has been placed on the surgery schedule for the morning time. Patient has dementia and is a very poor historian. Called assisted living facility and obtained medication records. Patient bed placed in lowest position and locked. Call light left within in reach and will continue to monitor the patient.
[2020-02-20] MEDS: IV NORMAL SALINE 1000ML BAG 1,000 ML IV SCH (22:01)
[2020-02-20] MEDS: AZITHROMYCIN 500 MG in IV NORMAL SALINE 250ML 250 ML IV SCH (22:03)
[2020-02-20 23:00] VITALS: BP 191/118
[2020-02-21] VITALS (12 sets, daily range): BP systolic 143–177; BP diastolic 82–100
[2020-02-21] MEDS ORDERED: DILT60TA3 PO (01:15)
[2020-02-21] MEDS ORDERED: MELA3TAB4 PO (01:16)
[2020-02-21] MEDS ORDERED: ACET325T21 PO (01:16)
[2020-02-21] MEDS: hydrALAZINE 20 MG/ML VIAL. IVP PRN (01:20)
[2020-02-21 03:34] LABS: BASO % 0 % (0-3); EOS % 0 % (0-3); HEMATOCRIT 36.7 % (36.0-47.0); HEMOGLOBIN 12.4 g/dL (12.0-15.5); LYMPH # 0.5 x10^3/uL (1.0-4.8); LYMPH % 3 % (24-48); MEAN CORPUSCULAR HEMOGLOBIN 29 pg (25-35); MEAN CORPUSCULAR HGB CONC 34 g/dL (31-37); MEAN CORPUSCULAR VOLUME 87 fL (79-100); MONO # 0.8 x10^3/uL (0.0-1.1); MONO % 5 % (0-9); NEUT # 13.4 x10^3/uL (1.8-7.7); NEUT % 91 % (31-73); PLATELET COUNT 406 x10^3/uL (140-400); RED BLOOD COUNT 4.22 x10^6/uL (3.50-5.40); WHITE BLOOD COUNT 14.7 x10^3/uL (4.0-11.0)
[2020-02-21 03:49] LABS: CALCIUM 8.7 mg/dL (8.5-10.1); CREATININE 0.7 mg/dL (0.6-1.0); GFR 79.5; PHOSPHORUS 3.4 mg/dL (2.6-4.7); POTASSIUM 3.9 mmol/L (3.5-5.1)
[2020-02-21] MEDS: IV NORMAL SALINE 1000ML BAG 1,000 ML IV SCH ×2 (05:09→18:03)
[2020-02-21] MEDS ORDERED: CLINDAMYCIN 900MG PREMIX 50 ML IV PRN (07:03)
[2020-02-21] MEDS ORDERED: ONDANSETRON PF 4 MG/2 ML VIAL. ONE (08:45)
[2020-02-21] MEDS ORDERED: PROPOFOL 10 MG/ML (20ML) VIAL. IV ONE (08:45)
[2020-02-21] MEDS ORDERED: LIDOCAINE 2% PF 5 ML VIAL. ONE (08:45)
[2020-02-21] MEDS ORDERED: fentaNYL PF VIAL 100 MCG/2 ML VIAL ONE (08:45)
[2020-02-21] MEDS ORDERED: DEXAMETHASONE SOD PHOS 4 MG/ML VIAL ONE (08:45)
--- NOTE | 2020-02-21 08:50 | EKG ---
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
[2020-02-21] MEDS: ASCORBIC ACID 500 MG TABLET PO SCH (09:00)
--- NOTE | 2020-02-21 10:22 | NUR ---
SW following. Discussed with RN. VIKRAM verified pt resides at the [facility] in the memory care unit. Pt having surgery today. PT/OT ordered. COVID-19 negative. VIKRAM will continue to follow.
[2020-02-21] MEDS ORDERED: SEVOFLURANE 61 TO 120 MINUTES. IH ONE (10:53)
[2020-02-21] MEDS ORDERED: MORPHINE SULFATE 5 MG, KETOROLAC 30MG VIAL 30 MG, ROPIVacaine 0.5% PF 60 ML, EPINEPHrin... INT ART ONE (11:00)
--- NOTE | 2020-02-21 11:01 | PDOC4 ---
Operative Note Operative Note Date of procedure: 02/21/2020 Surgeon: Roge Vaughan Logistics Solution Manager: Ilir Julien Preoperative diagnosis: Closed displaced left intertrochanteric hip fracture Postoperative diagnosis: Same Procedure performed: Post reduction and intramedullary nailing of left intertrochanteric hip fracture Anesthesia: General Complications: None Blood loss: 50 mL Components inserted: [employer] InterTAN nail, 10 x 18, 100 mm lag screw, 30 mm compression screw, distal interlocking screw Reason for procedure: Patient is a very pleasant 84-year-old female brought in from a halfway after a ground-level fall. She was making her bed when she fell over. She was brought in and found to have the above injury. She is admitted to the hospitalist. I was asked to see in consultation for management of her hip fracture. Her DURABLE POWER OF ASSEMBLER MECHAN[employer] ORDNANCE was contacted and consent was achieved. Description of procedure: Patient was greeted in the preoperative area by myself or the correct extremity was verified and marked. She was then taken to the operative suite and once in the OR her antibiotics were started and she had successful induction of a general anesthetic and was then transferred gently supine to the fracture table. Right leg was placed into a well leg snowden, arms were secured and a padded fashion across her chest. Left leg was placed to a traction ski boot. I then brought in C arm and perform a provisional reduction maneuver until satisfactory alignment was achieved. After this, we proceeded prep and drape left lower extremity and hip in her usual sterile fashion and conducted our standard preoperative timeout. I palpated marked surface anatomy and moise a line for midline skin incision referencing her ASIS and greater trochanter. Skin was incised with a scalpel and I bluntly dissected down to the tip of the greater trochanter and then used fluoroscopy to guide my starting point in an AP and lateral sequence. I then advanced a guidepin down past the lesser trochanter followed by the entry reamer. I then impacted my nail and position. I then used fluoroscopy to achieve as close as a center center position as I was able to. After this, I placed my I drilled for my compression screw then placed my derotation bar then drilled for my leg screw and placed my leg screw. Given her fracture configuration, I did not think I had room for a long compression screw, I opted to place a short 1. After this, I removed this screw assembly, I placed the distal locking screw trochars again skin, incised skin accordance with this and bluntly spread down to bone. I then seated these trochars drilled and then placed my screw after measuring. We then remove the insertion handle and took our final images. After this, the operative incisions were thoroughly irrigated with sterile fluid. We then closed skin using inverted interrupted 0 Vicryl down deep, inverted interrupted 2-0 Vicryl for subcutaneous tissue and blanca for skin. Periarticular mixture was injected in the nathan-incisional soft tissues. All counts correct x2 prior to wound closure. No complications. At the conclusion, she was laid gently supine on the fracture table and transferred gently supine to the hospital bed and taken to PACU in stable and extubated condition. Postoperative plan is to readmit her under the care of the hospitalist. She received DVT and antibiotic prophylaxis. I will follow along. I did try calling her DURABLE [employer]OWER [employer] ASSEM[employer]CH[employer] ORDNANCE, I was unable to reach this individual. ROGE VAUGHAN II, MD Feb 21, 2020 11:01
[2020-02-21] MEDS ORDERED: PROCHLORPERAZINE 10 MG/2 ML VIAL. ONE (11:21)
[2020-02-21] MEDS ORDERED: IV RINGERS,LACTATED 1000ML 1,000 ML IV SCH (11:21)
[2020-02-21] MEDS ORDERED: PROCHLORPERAZINE 10 MG/2 ML VIAL. IV PRN (11:30)
[2020-02-21] MEDS ORDERED: fentaNYL PF VIAL 100 MCG/2 ML VIAL IV PRN ×2 (11:30)
[2020-02-21] MEDS ORDERED: LIDOCAINE 1% PF 2 ML VIAL. ID PRN (11:30)
[2020-02-21] MEDS ORDERED: HYDROmorphone 2 MG/ML VIAL IV PRN (11:30)
[2020-02-21] MEDS ORDERED: MORPHINE SULFATE 2 MG/ML VIAL. IV PRN (11:30)
[2020-02-21] MEDS ORDERED: ONDANSETRON PF 4 MG/2 ML VIAL. IV PRN (11:30)
--- NOTE | 2020-02-21 11:56 | PDOC ---
[employer] PROGRESS NOTE Date of Service DOS: DATE: 02/21/20 TIME: 11:54 Chief Complaint Chief Complaint Hip fracture History of Present Illness History of Present Illness 02/21/2020 Patient seen and examined in the postop recovery area Discussed with RN Discussed with rehabilitation case coordinator Vitals/I&O Vitals/I&O: Vital Signs Date Time Temp Pulse Resp B/P (MAP) Pulse Ox O2 Delivery O2 Flow Rate FiO2 02/21/20 11:25 98.0 96 16 185/85 97 Simple Mask 10 98.0 I & O 02/20/20 02/20/20 02/21/20 15:00 23:00 07:00 Intake Total 0 ml 0 ml Output Total 1000 ml 1000 ml Balance -1000 ml -1000 ml Physical Exam General: No acute distress, Other (Still sedated some) Heart: Regular rate, Normal S1 Lungs: Clear Abdomen: Normal bowel sounds, Soft Extremities: Other (Left hip with clean dry intact dressing) Skin: No rashes, No breakdown Labs Labs: Laboratory Tests Test 02/20/20 15:15 02/20/20 15:20 02/20/20 17:20 02/20/20 18:30 White Blood Count 18.3 x10^3/uL (4.0-11.0) Red Blood Count 4.17 x10^6/uL (3.50-5.40) Hemoglobin 12.0 g/dL (12.0-15.5) Hematocrit 36.8 % (36.0-47.0) Mean Corpuscular Volume 88 fL (79-100) Mean Corpuscular Hemoglobin 29 pg (25-35) Mean Corpuscular Hemoglobin Concent 33 g/dL (31-37) Red Cell Distribution Width 13.2 % (11.5-14.5) Platelet Count 373 x10^3/uL (140-400) Neutrophils (%) (Auto) 93 % (31-73) Lymphocytes (%) (Auto) 2 % (24-48) Monocytes (%) (Auto) 4 % (0-9) Eosinophils (%) (Auto) 0 % (0-3) Basophils (%) (Auto) 0 % (0-3) Neutrophils # (Auto) 17.1 x10^3/uL (1.8-7.7) Lymphocytes # (Auto) 0.4 x10^3/uL (1.0-4.8) Monocytes # (Auto) 0.7 x10^3/uL (0.0-1.1) Eosinophils # (Auto) 0.0 x10^3/uL (0.0-0.7) Basophils # (Auto) 0.1 x10^3/uL (0.0-0.2) Segmented Neutrophils % 92 % (35-66) Band Neutrophils % 4 % (0-9) Lymphocytes % 1 % (24-48) Monocytes % 3 % (0-10) Platelet Estimate Adequate (ADEQUATE) Prothrombin Time 13.2 SEC (11.7-14.0) Prothromb Time International Ratio 1.0 (0.8-1.1) Sodium Level 136 mmol/L (136-145) Potassium Level 3.9 mmol/L (3.5-5.1) Chloride Level 101 mmol/L (98-107) Carbon Dioxide Level 25 mmol/L (21-32) Anion Gap 10 (6-14) Blood Urea Nitrogen 19 mg/dL (7-20) Creatinine 0.7 mg/dL (0.6-1.0) Estimated GFR (Cockcroft-Gault) 79.5 BUN/Creatinine Ratio 27 (6-20) Glucose Level 140 mg/dL (70-99) Calcium Level 8.9 mg/dL (8.5-10.1) Magnesium Level 2.2 mg/dL (1.8-2.4) Total Bilirubin 0.3 mg/dL (0.2-1.0) Aspartate Amino Transf (AST/SGOT) 35 U/L (15-37) Alanine Aminotransferase (ALT/SGPT) 25 U/L (14-59) Alkaline Phosphatase 90 U/L (46-116) Troponin I Quantitative 0.032 ng/mL (0.000-0.055) Total Protein 6.6 g/dL (6.4-8.2) Albumin 3.6 g/dL (3.4-5.0) Albumin/Globulin Ratio 1.2 (1.0-1.7) Lipase 219 U/L (73-393) Thyroid Stimulating Hormone (TSH) 1.445 uIU/mL (0.358-3.74) Urine Collection Type U cath Urine Color Yellow Urine Clarity Cloudy Urine pH 8.0 (<5.0-8.0) Urine Specific [place] 1.010 (1.000-1.030) Urine Protein Negative mg/dL (NEG-TRACE) Urine Glucose (UA) Negative mg/dL (NEG) Urine Ketones (Stick) Negative mg/dL (NEG) Urine Blood Negative (NEG) Urine Nitrite Positive (NEG) Urine Bilirubin Negative (NEG) Urine Urobilinogen Dipstick 0.2 mg/dL (0.2 mg/dL) Urine Leukocyte Esterase Large (NEG) Urine RBC 0 /HPF (0-2) Urine WBC >40 /HPF (0-4) Urine Squamous Epithelial Cells Many /LPF Urine Bacteria Many /HPF (0-FEW) SARS-CoV-2 Antigen (Rapid) Negative (NEGATIVE) 25-Hydroxy Vitamin D Total 7.7 ng/mL (30-100) Test 02/21/20 02:50 White Blood Count 14.7 x10^3/uL (4.0-11.0) Red Blood Count 4.22 x10^6/uL (3.50-5.40) Hemoglobin 12.4 g/dL (12.0-15.5) Hematocrit 36.7 % (36.0-47.0) Mean Corpuscular Volume 87 fL (79-100) Mean Corpuscular Hemoglobin 29 pg (25-35) Mean Corpuscular Hemoglobin Concent 34 g/dL (31-37) Red Cell Distribution Width 13.0 % (11.5-14.5) Platelet Count 406 x10^3/uL (140-400) Neutrophils (%) (Auto) 91 % (31-73) Lymphocytes (%) (Auto) 3 % (24-48) Monocytes (%) (Auto) 5 % (0-9) Eosinophils (%) (Auto) 0 % (0-3) Basophils (%) (Auto) 0 % (0-3) Neutrophils # (Auto) 13.4 x10^3/uL (1.8-7.7) Lymphocytes # (Auto) 0.5 x10^3/uL (1.0-4.8) Monocytes # (Auto) 0.8 x10^3/uL (0.0-1.1) Eosinophils # (Auto) 0.0 x10^3/uL (0.0-0.7) Basophils # (Auto) 0.0 x10^3/uL (0.0-0.2) Sodium Level 134 mmol/L (136-145) Potassium Level 3.9 mmol/L (3.5-5.1) Chloride Level 99 mmol/L (98-107) Carbon Dioxide Level 24 mmol/L (21-32) Anion Gap 11 (6-14) Blood Urea Nitrogen 16 mg/dL (7-20) Creatinine 0.7 mg/dL (0.6-1.0) Estimated GFR (Cockcroft-Gault) 79.5 Glucose Level 135 mg/dL (70-99) Calcium Level 8.7 mg/dL (8.5-10.1) Phosphorus Level 3.4 mg/dL (2.6-4.7) Magnesium Level 2.0 mg/dL (1.8-2.4) Assessment and Plan Assessmemt and Plan Problems Medical Problems: (1) Closed left hip fracture Status: Acute (2) Fall Status: Acute (3) UTI (urinary tract infection) Status: Acute Left intertrochanteric femur fracture due to mechanical fall from standing Leukocytosis due to trauma Acute UTI Concern for left lower lobe pneumonia Small nodular opacity overlying the left costophrenic angle Multiple falls Dementia Hypertension Plan Appreciate Ortho intervention for now continue the following Wound care PRN pain meds Home meds if possible Pulmonology consult ID consult PT OT Fall precautions Continue IV ceftriaxone and azithromycin antibiotics Pending blood and urine cultures Lovenox for DVT prophylaxis ADA diet Full code Discussed with RN and SW Disposition pending Ortho, ID, pulmonology evaluations Surrogate decision maker is the Viet Perez Patient might need hospice on discharge will reevaluate in the morning Comment Review of Relevant I have reviewed the following items reyes (where applicable) has been applied. Medications: Current Medications Medications (Trade) Dose Ordered Sig/Lesly Route PRN Reason Start Time Stop Time Status Last Admin Dose Admin Morphine Sulfate (Morphine Sulfate) 5 mg 1X ONCE IV 02/20/20 15:45 02/20/20 15:46 DC 02/20/20 16:17 Ondansetron HCl (Zofran) 4 mg 1X ONCE IVP 02/20/20 15:45 02/20/20 15:46 DC 02/20/20 16:17 Morphine Sulfate (Morphine Sulfate) 4 mg PRN Q2HR PRN IV PAIN 02/20/20 16:45 02/21/20 16:44 02/20/20 22:03 Sodium Chloride 1,000 ml @ 75 mls/hr 1X ONCE IV 02/20/20 16:45 02/21/20 06:04 DC 02/20/20 18:19 Ceftriaxone Sodium (Rocephin) 1 gm 1X ONCE IVP 02/20/20 16:45 02/20/20 16:47 DC 02/20/20 18:20 Morphine Sulfate (Morphine Sulfate) 5 mg 1X ONCE IV 02/20/20 18:15 02/20/20 18:16 DC 02/20/20 18:20 Sodium Chloride 1,000 ml @ 100 mls/hr Q10H IV 02/20/20 18:15 02/21/20 05:09 Enoxaparin Sodium (Lovenox 40mg Syringe) 40 mg Q24H SQ 02/20/20 21:00 02/20/20 22:11 Azithromycin 500 mg/Sodium Chloride 250 ml @ 250 mls/hr Q24H IV 02/20/20 19:00 02/20/20 22:03 Hydralazine HCl (Apresoline Inj) 10 mg PRN Q4HRS PRN IVP ELEVATED BP, SEE COMMENTS 02/21/20 01:00 02/21/20 01:20 Clindamycin Phosphate 50 ml @ 100 mls/hr 1X PREOP PRN IV PRIOR TO PROCEDURE 02/21/20 07:03 02/22/20 07:02 02/21/20 09:46 Morphine Sulfate 5 mg/Ketorolac Tromethamine 30 mg/Ropivacaine 60 ml/Epinephrine HCl 0.5 mg/Sodium Chloride 100 ml @ 100 mls/hr 1X ONCE INT ART 02/21/20 11:00 02/21/20 11:59 02/21/20 10:50 Justifications for Admission Other Justification RYLEE LESTER III DO Feb 21, 2020 11:56
--- NOTE | 2020-02-21 12:54 | CONS ---
DATE OF CONSULTATION: PULMONARY CONSULTATION ATTENDING PHYSICIAN: Dr. العلي. REASON FOR CONSULTATION: Abnormal chest x-ray. HISTORY OF PRESENT ILLNESS: The patient is an 84-year-old female who has history of dementia, hypertension. [facility] after she was found to have a left hip fracture after a fall. The patient had a chest x-ray, which was reviewed by me. There is some volume loss in the left lower lobe, likely atelectasis. There is also some blunting of the left costophrenic angle with a questionable nodular opacity. I have been asked to see her for further evaluation. The patient just had surgery. She denies any significant tobacco history. She denies any cough, fever, chills, chest pains or shortness of breath. PAST MEDICAL HISTORY: Dementia, hypertension, UTI and frequent falls. PAST SURGICAL HISTORY: None recent except for hip fracture today. ALLERGIES: PENICILLIN, AMLODIPINE, CITALOPRAM, LISINOPRIL, METOPROLOL, AND NITROFURANTOIN. MEDICATIONS: Reviewed as listed in the MRAD including Lovenox and antibiotics. REVIEW OF SYSTEMS: Ten-point system obtained. Pertinent positives discussed in my history of present illness, otherwise noncontributory. All systems that were negative were reviewed as well. SOCIAL HISTORY: Very minimal tobacco history. PHYSICAL EXAMINATION: VITAL SIGNS: Reviewed. NECK: Supple. LUNGS: With diminished breath sounds at the bases. CARDIOVASCULAR: With a regular rate. ABDOMEN: Soft. EXTREMITIES: With sterile dressing on the left hip area. LABORATORY DATA: Reviewed. White cell count was 18.3 on admission, hemoglobin 12.0 and platelets are 373. She is COVID negative. BUN and creatinine normal. IMPRESSION: 1. Abnormal chest x-ray, likely atelectasis. I will obtain CT chest without contrast in the next 24 hours. Clinically, she lacks any symptoms of pneumonia. 2. Status post fall and left hip fracture, status post reduction and nailing of left intertrochanteric hip fracture. 3. No significant tobacco history. 4. Leukocytosis, likely reactive. RECOMMENDATIONS: 1. We will continue with p.r.n. oxygen to keep saturation 92% and above. 2. Lovenox for DVT prophylaxis. 3. Empiric antibiotic. 4. Noncontrast CT chest. Once the CT chest is reviewed and pneumonia ruled out, antibiotics can be deescalated. 5. Follow orthopedic recommendations. 6. Discussed with RN. ALMITA WESLEY MD DR: CHRIS/sandra JOB#: [id number] / [id number]
[2020-02-21] MEDS ORDERED: cefTRIAXone IV Push 1 GM VIAL. IVP SCH (18:00)
[2020-02-21] MEDS: CLINDAMYCIN 900MG PREMIX 50 ML IV SCH (18:02)
[2020-02-21] MEDS: AZITHROMYCIN 500 MG in IV NORMAL SALINE 250ML 250 ML IV SCH (19:25)
[2020-02-22] MEDS: IV NORMAL SALINE 1000ML BAG 1,000 ML IV SCH ×3 (00:19→20:15)
[2020-02-22] MEDS: ACETAMINOPHEN 325 MG TABLET. PO PRN ×2 (00:19→20:14)
[2020-02-22] MEDS: CLINDAMYCIN 900MG PREMIX 50 ML IV SCH ×2 (02:32→08:54)
[2020-02-22 03:00] VITALS: BP 171/92
--- NOTE | 2020-02-22 03:12 | NUR ---
patient confused all night, fall precautions in placed.
[2020-02-22] MEDS: hydrALAZINE 20 MG/ML VIAL. IVP PRN ×2 (03:30→20:15)
[2020-02-22 07:00] VITALS: BP 140/78
[2020-02-22] MEDS: ASCORBIC ACID 500 MG TABLET PO SCH (08:57)
--- NOTE | 2020-02-22 09:40 | PDOC ---
ORTHO PROGRESS NOTES DATE: 02/22/20 TIME: 09:38 Subjective She is resting, does not verbalize any complaints Vitals Vital Signs Date Time Temp Pulse Resp B/P (MAP) Pulse Ox O2 Delivery O2 Flow Rate FiO2 02/22/20 07:00 97.9 103 18 140/78 (98) 95 Room Air 97.9 02/21/20 13:33 2.0 Labs Laboratory Tests Test 02/20/20 15:15 02/20/20 15:20 02/20/20 17:20 02/20/20 18:30 White Blood Count 18.3 x10^3/uL (4.0-11.0) Red Blood Count 4.17 x10^6/uL (3.50-5.40) Hemoglobin 12.0 g/dL (12.0-15.5) Hematocrit 36.8 % (36.0-47.0) Mean Corpuscular Volume 88 fL (79-100) Mean Corpuscular Hemoglobin 29 pg (25-35) Mean Corpuscular Hemoglobin Concent 33 g/dL (31-37) Red Cell Distribution Width 13.2 % (11.5-14.5) Platelet Count 373 x10^3/uL (140-400) Neutrophils (%) (Auto) 93 % (31-73) Lymphocytes (%) (Auto) 2 % (24-48) Monocytes (%) (Auto) 4 % (0-9) Eosinophils (%) (Auto) 0 % (0-3) Basophils (%) (Auto) 0 % (0-3) Neutrophils # (Auto) 17.1 x10^3/uL (1.8-7.7) Lymphocytes # (Auto) 0.4 x10^3/uL (1.0-4.8) Monocytes # (Auto) 0.7 x10^3/uL (0.0-1.1) Eosinophils # (Auto) 0.0 x10^3/uL (0.0-0.7) Basophils # (Auto) 0.1 x10^3/uL (0.0-0.2) Segmented Neutrophils % 92 % (35-66) Band Neutrophils % 4 % (0-9) Lymphocytes % 1 % (24-48) Monocytes % 3 % (0-10) Platelet Estimate Adequate (ADEQUATE) Prothrombin Time 13.2 SEC (11.7-14.0) Prothromb Time International Ratio 1.0 (0.8-1.1) Sodium Level 136 mmol/L (136-145) Potassium Level 3.9 mmol/L (3.5-5.1) Chloride Level 101 mmol/L (98-107) Carbon Dioxide Level 25 mmol/L (21-32) Anion Gap 10 (6-14) Blood Urea Nitrogen 19 mg/dL (7-20) Creatinine 0.7 mg/dL (0.6-1.0) Estimated GFR (Cockcroft-Gault) 79.5 BUN/Creatinine Ratio 27 (6-20) Glucose Level 140 mg/dL (70-99) Calcium Level 8.9 mg/dL (8.5-10.1) Magnesium Level 2.2 mg/dL (1.8-2.4) Total Bilirubin 0.3 mg/dL (0.2-1.0) Aspartate Amino Transf (AST/SGOT) 35 U/L (15-37) Alanine Aminotransferase (ALT/SGPT) 25 U/L (14-59) Alkaline Phosphatase 90 U/L (46-116) Troponin I Quantitative 0.032 ng/mL (0.000-0.055) Total Protein 6.6 g/dL (6.4-8.2) Albumin 3.6 g/dL (3.4-5.0) Albumin/Globulin Ratio 1.2 (1.0-1.7) Lipase 219 U/L (73-393) Thyroid Stimulating Hormone (TSH) 1.445 uIU/mL (0.358-3.74) Urine Collection Type U cath Urine Color Yellow Urine Clarity Cloudy Urine pH 8.0 (<5.0-8.0) Urine Specific [place] 1.010 (1.000-1.030) Urine Protein Negative mg/dL (NEG-TRACE) Urine Glucose (UA) Negative mg/dL (NEG) Urine Ketones (Stick) Negative mg/dL (NEG) Urine Blood Negative (NEG) Urine Nitrite Positive (NEG) Urine Bilirubin Negative (NEG) Urine Urobilinogen Dipstick 0.2 mg/dL (0.2 mg/dL) Urine Leukocyte Esterase Large (NEG) Urine RBC 0 /HPF (0-2) Urine WBC >40 /HPF (0-4) Urine Squamous Epithelial Cells Many /LPF Urine Bacteria Many /HPF (0-FEW) SARS-CoV-2 Antigen (Rapid) Negative (NEGATIVE) 25-Hydroxy Vitamin D Total 7.7 ng/mL (30-100) Test 02/21/20 02:50 White Blood Count 14.7 x10^3/uL (4.0-11.0) Red Blood Count 4.22 x10^6/uL (3.50-5.40) Hemoglobin 12.4 g/dL (12.0-15.5) Hematocrit 36.7 % (36.0-47.0) Mean Corpuscular Volume 87 fL (79-100) Mean Corpuscular Hemoglobin 29 pg (25-35) Mean Corpuscular Hemoglobin Concent 34 g/dL (31-37) Red Cell Distribution Width 13.0 % (11.5-14.5) Platelet Count 406 x10^3/uL (140-400) Neutrophils (%) (Auto) 91 % (31-73) Lymphocytes (%) (Auto) 3 % (24-48) Monocytes (%) (Auto) 5 % (0-9) Eosinophils (%) (Auto) 0 % (0-3) Basophils (%) (Auto) 0 % (0-3) Neutrophils # (Auto) 13.4 x10^3/uL (1.8-7.7) Lymphocytes # (Auto) 0.5 x10^3/uL (1.0-4.8) Monocytes # (Auto) 0.8 x10^3/uL (0.0-1.1) Eosinophils # (Auto) 0.0 x10^3/uL (0.0-0.7) Basophils # (Auto) 0.0 x10^3/uL (0.0-0.2) Sodium Level 134 mmol/L (136-145) Potassium Level 3.9 mmol/L (3.5-5.1) Chloride Level 99 mmol/L (98-107) Carbon Dioxide Level 24 mmol/L (21-32) Anion Gap 11 (6-14) Blood Urea Nitrogen 16 mg/dL (7-20) Creatinine 0.7 mg/dL (0.6-1.0) Estimated GFR (Cockcroft-Gault) 79.5 Glucose Level 135 mg/dL (70-99) Calcium Level 8.7 mg/dL (8.5-10.1) Phosphorus Level 3.4 mg/dL (2.6-4.7) Magnesium Level 2.0 mg/dL (1.8-2.4) Notes She is confused. Dressing is intact with expected amount of bloody drainage. Toes are warm she does not follow commands Assessment and Plan DVT and antibiotic prophylaxis. She can participate in rehab if she is able to cooperate. I do not anticipate a need for PT and OT at this time though. She can be transferred once medically stable. WALT VAUGHAN II, MD Feb 22, 2020 09:40
--- NOTE | 2020-02-22 10:24 | PDOC ---
PULMONARY PROGRESS NOTES DATE: 02/22/20 TIME: 10:23 Subjective wants to go home no soa Vitals Vital Signs Date Time Temp Pulse Resp B/P (MAP) Pulse Ox O2 Delivery O2 Flow Rate FiO2 02/22/20 07:00 97.9 103 18 140/78 (98) 95 Room Air 97.9 02/21/20 13:33 2.0 General: Alert, No acute distress Lungs: Clear Cardiovascular: S1 Abdomen: Soft Neuro Exam: Alert Extremities: No Edema Labs Laboratory Tests Test 02/20/20 15:15 02/20/20 15:20 02/20/20 17:20 02/20/20 18:30 White Blood Count 18.3 x10^3/uL (4.0-11.0) Red Blood Count 4.17 x10^6/uL (3.50-5.40) Hemoglobin 12.0 g/dL (12.0-15.5) Hematocrit 36.8 % (36.0-47.0) Mean Corpuscular Volume 88 fL (79-100) Mean Corpuscular Hemoglobin 29 pg (25-35) Mean Corpuscular Hemoglobin Concent 33 g/dL (31-37) Red Cell Distribution Width 13.2 % (11.5-14.5) Platelet Count 373 x10^3/uL (140-400) Neutrophils (%) (Auto) 93 % (31-73) Lymphocytes (%) (Auto) 2 % (24-48) Monocytes (%) (Auto) 4 % (0-9) Eosinophils (%) (Auto) 0 % (0-3) Basophils (%) (Auto) 0 % (0-3) Neutrophils # (Auto) 17.1 x10^3/uL (1.8-7.7) Lymphocytes # (Auto) 0.4 x10^3/uL (1.0-4.8) Monocytes # (Auto) 0.7 x10^3/uL (0.0-1.1) Eosinophils # (Auto) 0.0 x10^3/uL (0.0-0.7) Basophils # (Auto) 0.1 x10^3/uL (0.0-0.2) Segmented Neutrophils % 92 % (35-66) Band Neutrophils % 4 % (0-9) Lymphocytes % 1 % (24-48) Monocytes % 3 % (0-10) Platelet Estimate Adequate (ADEQUATE) Prothrombin Time 13.2 SEC (11.7-14.0) Prothromb Time International Ratio 1.0 (0.8-1.1) Sodium Level 136 mmol/L (136-145) Potassium Level 3.9 mmol/L (3.5-5.1) Chloride Level 101 mmol/L (98-107) Carbon Dioxide Level 25 mmol/L (21-32) Anion Gap 10 (6-14) Blood Urea Nitrogen 19 mg/dL (7-20) Creatinine 0.7 mg/dL (0.6-1.0) Estimated GFR (Cockcroft-Gault) 79.5 BUN/Creatinine Ratio 27 (6-20) Glucose Level 140 mg/dL (70-99) Calcium Level 8.9 mg/dL (8.5-10.1) Magnesium Level 2.2 mg/dL (1.8-2.4) Total Bilirubin 0.3 mg/dL (0.2-1.0) Aspartate Amino Transf (AST/SGOT) 35 U/L (15-37) Alanine Aminotransferase (ALT/SGPT) 25 U/L (14-59) Alkaline Phosphatase 90 U/L (46-116) Troponin I Quantitative 0.032 ng/mL (0.000-0.055) Total Protein 6.6 g/dL (6.4-8.2) Albumin 3.6 g/dL (3.4-5.0) Albumin/Globulin Ratio 1.2 (1.0-1.7) Lipase 219 U/L (73-393) Thyroid Stimulating Hormone (TSH) 1.445 uIU/mL (0.358-3.74) Urine Collection Type U cath Urine Color Yellow Urine Clarity Cloudy Urine pH 8.0 (<5.0-8.0) Urine Specific [place] 1.010 (1.000-1.030) Urine Protein Negative mg/dL (NEG-TRACE) Urine Glucose (UA) Negative mg/dL (NEG) Urine Ketones (Stick) Negative mg/dL (NEG) Urine Blood Negative (NEG) Urine Nitrite Positive (NEG) Urine Bilirubin Negative (NEG) Urine Urobilinogen Dipstick 0.2 mg/dL (0.2 mg/dL) Urine Leukocyte Esterase Large (NEG) Urine RBC 0 /HPF (0-2) Urine WBC >40 /HPF (0-4) Urine Squamous Epithelial Cells Many /LPF Urine Bacteria Many /HPF (0-FEW) SARS-CoV-2 Antigen (Rapid) Negative (NEGATIVE) 25-Hydroxy Vitamin D Total 7.7 ng/mL (30-100) Test 02/21/20 02:50 White Blood Count 14.7 x10^3/uL (4.0-11.0) Red Blood Count 4.22 x10^6/uL (3.50-5.40) Hemoglobin 12.4 g/dL (12.0-15.5) Hematocrit 36.7 % (36.0-47.0) Mean Corpuscular Volume 87 fL (79-100) Mean Corpuscular Hemoglobin 29 pg (25-35) Mean Corpuscular Hemoglobin Concent 34 g/dL (31-37) Red Cell Distribution Width 13.0 % (11.5-14.5) Platelet Count 406 x10^3/uL (140-400) Neutrophils (%) (Auto) 91 % (31-73) Lymphocytes (%) (Auto) 3 % (24-48) Monocytes (%) (Auto) 5 % (0-9) Eosinophils (%) (Auto) 0 % (0-3) Basophils (%) (Auto) 0 % (0-3) Neutrophils # (Auto) 13.4 x10^3/uL (1.8-7.7) Lymphocytes # (Auto) 0.5 x10^3/uL (1.0-4.8) Monocytes # (Auto) 0.8 x10^3/uL (0.0-1.1) Eosinophils # (Auto) 0.0 x10^3/uL (0.0-0.7) Basophils # (Auto) 0.0 x10^3/uL (0.0-0.2) Sodium Level 134 mmol/L (136-145) Potassium Level 3.9 mmol/L (3.5-5.1) Chloride Level 99 mmol/L (98-107) Carbon Dioxide Level 24 mmol/L (21-32) Anion Gap 11 (6-14) Blood Urea Nitrogen 16 mg/dL (7-20) Creatinine 0.7 mg/dL (0.6-1.0) Estimated GFR (Cockcroft-Gault) 79.5 Glucose Level 135 mg/dL (70-99) Calcium Level 8.7 mg/dL (8.5-10.1) Phosphorus Level 3.4 mg/dL (2.6-4.7) Magnesium Level 2.0 mg/dL (1.8-2.4) Medications Active Scripts Medications Dose Route/Sig Max Daily Dose Days Date Category Acetaminophen 325 Mg Tablet 2 Tab PO QID PRN 24 02/21/20 Reported Melatonin 3 Mg Tablet 6 Mg PO HS 02/21/20 Reported Cardizem Tablet (Diltiazem Hcl) 60 Mg Tablet 180 Mg PO EVENING PRN 02/21/20 Reported Cozaar (Losartan Potassium) 50 Mg Tablet 50 Mg PO DAILY 04/21/17 Reported Impression . 1. Abnormal chest x-ray, likely atelectasis. I will obtain CT chest without contrast today. Clinically, she lacks any symptoms of pneumonia. 2. Status post fall and left hip fracture, status post reduction and nailing of left intertrochanteric hip fracture. 3. No significant tobacco history. 4. Leukocytosis, likely reactive. Plan . RECOMMENDATIONS: 1. We will continue with p.r.n. oxygen to keep saturation 92% and above. 2. Lovenox for DVT prophylaxis. 3. Empiric antibiotic. 4. Noncontrast CT chest. Once the CT chest is reviewed and pneumonia ruled out, antibiotics can be deescalated. 5. Follow orthopedic recommendations. 6. Discussed with BALTAZAR. ALMITA WESLEY MD Feb 22, 2020 10:24
[2020-02-22 11:00] VITALS: BP 133/71
[2020-02-22] MEDS: ENOXAPARIN 40 MG/0.4 ML SYRINGE. SQ SCH (11:00)
--- NOTE | 2020-02-22 11:29 | CONS ---
DATE OF CONSULTATION: 02/22/2020 REQUESTING PHYSICIAN: Dr. Monte. REASON FOR CONSULTATION: UTI and pneumonia. HISTORY OF PRESENT ILLNESS: This is an 84-year-old female who was admitted after having a fall. The patient had sustained a hip fracture. The patient has no urinary symptoms. The patient does not have cough. Did not have any fever. Does have leukocytosis. The patient was taken to the OR and ORIF was done. The patient does have pulmonary infiltrate, appears to be chronic. The patient has been receiving Rocephin, azithromycin and clindamycin. The patient is alert, awake. The patient is ready to go back home. Denies any nausea, vomiting, diarrhea. Denies any chest pain, shortness of breath, abdominal pain, urinary symptoms or bowel symptoms. The hip pain, whenever she moves, reminds her that she just underwent hip fracture and surgery. PAST MEDICAL HISTORY: Positive for dementia, hypertension, frequent falls. SOCIAL HISTORY: Negative for smoking, alcohol or illicit drug use. ALLERGIES: LISTED ALLERGIC TO PENICILLIN, CAUSE HIVES, SHE SAYS. CURRENT MEDICATIONS: Reviewed. REVIEW OF SYSTEMS: As per HPI, all other systems reviewed and are negative. PHYSICAL EXAMINATION: GENERAL: Alert, oriented female, not in distress. VITAL SIGNS: Stable, afebrile. HEENT: NAD. NECK: Supple, no JVP, no lymphadenopathy. LUNGS: Clear. HEART: S1, S2 regular. ABDOMEN: Soft, nontender, no organomegaly. EXTREMITIES: No edema, cyanosis. SKIN: Unremarkable. NEUROLOGIC: The patient is alert, awake. Memory is poor. Does move all the extremities. No focal deficit. LABORATORY DATA: White count is 14.7, down from 18,000. BUN and creatinine is normal. Urinalysis showed more than 40 wbc's. COVID-19 was negative. Chest x-ray and hip x-ray reviewed. Her chest x-ray showed some lower lobe infiltrates/scarring. IMPRESSION: 1. Status post fall with a left hip fracture, status post open reduction and internal fixation. 2. Abnormal urinalysis, asymptomatic, has no value. 3. Chronic infiltrate, most likely to be scarring. There is no clinical evidence, signs or symptoms of pneumonia. 4. Dementia. RECOMMENDATIONS: Recommend discontinue all antibiotics and change to p.o. cefdinir for 5 more days. Supportive care and the patient can be discharged from the infectious disease standpoint of view. Thank you very much, Dr. Monte, for giving me the opportunity to participate in this patient's care. LALA DENNIS MD DR: CHRISSY/sandra JOB#: [id number] / [id number]
--- NOTE | 2020-02-22 12:34 | PDOC ---
[employer] PROGRESS NOTE Date of Service DOS: DATE: 02/22/20 TIME: 12:28 Chief Complaint Chief Complaint Hip fracture History of Present Illness History of Present Illness 02/22/2020 Pt seen and examined in room resting comfortably Left hip wound dressing clean w/o bleeding DW RN DW caser up 02/21/2020 Patient seen and examined in the postop recovery area Discussed with RN Discussed with caser up Vitals/I&O Vitals/I&O: Vital Signs Date Time Temp Pulse Resp B/P (MAP) Pulse Ox O2 Delivery O2 Flow Rate FiO2 02/22/20 11:00 98.6 102 18 133/71 (91) 95 Room Air 98.6 02/21/20 13:33 2.0 I & O 02/21/20 02/21/20 02/22/20 15:00 23:00 07:00 Intake Total 850 ml 100 ml Output Total 250 ml 850 ml Balance 600 ml -750 ml Physical Exam General: Alert, Oriented X3, Cooperative Heart: Regular rate, Normal S1, Normal S2 Abdomen: Normal bowel sounds, Soft Extremities: No clubbing, No cyanosis Skin: No rashes, No breakdown Review of Systems Review of Systems: NO N/V NO SOB Assessment and Plan Assessmemt and Plan Problems Medical Problems: (1) Closed left hip fracture Status: Acute (2) Fall Status: Acute (3) UTI (urinary tract infection) Status: Acute Plan: 1) Wound Care 2) IV fluids 3) DVT prophylaxis 4) Full code 5) appreciate subspecialty input Comment Review of Relevant I have reviewed the following items reyes (where applicable) has been applied. Medications: Current Medications Medications (Trade) Dose Ordered Sig/Lesly Route PRN Reason Start Time Stop Time Status Last Admin Dose Admin Ceftriaxone Sodium (Rocephin) 1 gm Q24H IVP 02/21/20 18:00 02/22/20 09:50 DC 02/21/20 18:02 Clindamycin Phosphate 50 ml @ 100 mls/hr Q8H IV 02/21/20 18:00 02/22/20 09:50 DC 02/22/20 08:54 Justifications for Admission Other Justification RYLEE LESTER III DO Feb 22, 2020 12:34
--- NOTE | 2020-02-22 12:44 | RAD ---
Examination: CT CHEST WO CONTRAST History: LLL nodule vs atelectasis Comparison/Correlation: 02/20/2020 chest x-ray Findings: Axial images of the chest were obtained without contrast. Sagittal and coronal reformatted images were provided. Respiratory motion at the lung bases is present. Large left thyroid lobe cystic density structure measuring 4.5 cm x 2 screws present at all marginated. Small left thyroid lobe nodule is noted as well. Left costophrenic sulcus atelectasis is evident. There is no suspicious nodule or mass lesion involving the left costophrenic angle. There is linear scarring or linear atelectasis present however. This appears to account for the finding on the recent chest x-ray exam. Very small left pleural effusion is also present. Subtle centrilobular emphysematous and pulmonary lung corbin noted. Old right lower rib fractures are present. Minimal right posterior basilar linear scarring or atelectasis is also evident. Subcarinal calcified lymph nodes are present. T12 vertebral body compression fracture is present with loss of vertebral body height of approximately 25 percent 50 percent. This is of indeterminate age. Calcified granulomas involving the spleen. Impression: Left costophrenic sulcus atelectatic consolidation. Atelectasis or scarring involving the right lung base is present. Much lesser extent. No suspicious pulmonary nodule or mass lesion although evaluation may be limited in the region of atelectasis. Very small left pleural effusion. Thyroid nodular involvement. Large benign-appearing cystic right thyroid lobe structure. No aggressive features to warrant further imaging assessment. PQRS Compliance Statement: One or more of the following individualized dose reduction techniques were utilized for this examination: 1. Automated exposure control 2. Adjustment of the mA and/or kV according to patient size 3. Use of iterative reconstruction technique Electronically signed by: Judah Sloan MD (02/22/2020 12:41 PM) [id number]
--- NOTE | 2020-02-22 13:25 | NUR ---
VIKRAM following. Discussed with RN, pt from [facility]. VIKRAM spoke with the [facility], they have contracted with [facility] for the therapy and halfway for their residents. VIKRAM spoke with pt's son Arnol (ph: [phone], he would prefer pt return to [facility] and have the therapy provided there. VIKRAM verified with [facility] - it would be home health orders they would need. VIKRAM notified Dr. Monte, he would like to discharge patient tomorrow (02/23/2020). RN is checking with consults about whether pt is medically stable for discharge. SW will continue to follow. RN notified.
[2020-02-22 15:00] VITALS: BP 157/89
[2020-02-22 19:00] VITALS: BP 171/92
[2020-02-22] MEDS: CEFDINIR 300 MG CAPSULE PO SCH (20:14)
--- NOTE | 2020-02-22 20:42 | NUR ---
pt confused and agitated trying to pull out IV access and segovia cath and incision dressing, pt reoriented to situation but still confused, uncooperative to staff. will page doctor manager of organizational development.
[2020-02-22] MEDS: LACTOBACILLUS RHAMNOSUS GG 1 CAPSULE. PO SCH (21:00)
[2020-02-22 23:00] VITALS: BP 124/59
[2020-02-23 03:00] VITALS: BP 120/69
[2020-02-23] MEDS: IV NORMAL SALINE 1000ML BAG 1,000 ML IV SCH (06:15)
[2020-02-23 07:00] VITALS: BP 139/82
[2020-02-23] MEDS: CEFDINIR 300 MG CAPSULE PO SCH (07:53)
[2020-02-23] MEDS: ASCORBIC ACID 500 MG TABLET PO SCH (07:53)
--- NOTE | 2020-02-23 08:23 | PDOC ---
ORTHO PROGRESS NOTES DATE: 02/23/20 TIME: 08:15 Subjective Patient awake and eating breakfast but confused. Procedure Post reduction IM nail left hip fracture Vitals Vital Signs Date Time Temp Pulse Resp B/P (MAP) Pulse Ox O2 Delivery O2 Flow Rate FiO2 02/23/20 07:53 109 139/82 02/23/20 07:00 98.2 18 95 Room Air 98.2 Notes Awake but confused Assessment and Plan Postop left hip IM nail status post intertrochanteric hip fracture. Motor and sensation intact distally at the left lower extremity Calf is soft and nontender. Dressing is dry and intact. Continue physical therapy May return to skilled facility per Ortho standpoint if medically stable. ABIGAIL CALDERÓN QUALITY ASSURANCE NURSE Feb 23, 2020 08:22
[2020-02-23] MEDS: LACTOBACILLUS RHAMNOSUS GG 1 CAPSULE. PO SCH (08:46)
[2020-02-23] MEDS ORDERED: LOSARTAN POTASSIUM 50 MG TABLET. PO SCH (09:00)
--- NOTE | 2020-02-23 09:06 | PDOC ---
Infectious Disease Note Subjective Subjective pt says she is fine ROS ROS no n/v/d/sob Vital Sign Vital Signs Vital Signs Date Time Temp Pulse Resp B/P (MAP) Pulse Ox O2 Delivery O2 Flow Rate FiO2 02/23/20 08:00 Room Air 02/23/20 07:53 109 139/82 02/23/20 07:00 98.2 18 95 98.2 Physical Exam PHYSICAL EXAM GENERAL: Alert, oriented female, not in distress. VITAL SIGNS: Stable, afebrile. HEENT: NAD. NECK: Supple, no JVP, no lymphadenopathy. LUNGS: Clear. HEART: S1, S2 regular. ABDOMEN: Soft, nontender, no organomegaly. EXTREMITIES: No edema, cyanosis. SKIN: Unremarkable. NEUROLOGIC: The patient is alert, awake. Memory is poor. Does move all the extremities. No focal deficit. Objective Assessment IMPRESSION: 1. Status post fall with a left hip fracture, status post open reduction and internal fixation. 2. Abnormal urinalysis, asymptomatic, has no value. 3. Chronic infiltrate, most likely to be scarring. There is no clinical evidence, signs or symptoms of pneumonia. 4. Dementia. Plan Plan of Care augmentin for 5 days d/c LALA DENNIS MD Feb 23, 2020 09:06
--- NOTE | 2020-02-23 09:42 | NUR ---
VIKRAM following. Discussed with RN, pt likely discharging back to the [facility] today. Awaiting discharge orders to fax to home health for therapy at the [facility], per son's choice. VIKRAM will continue to follow. Addendum: 02/23/20 at 1204 by NIKOLAI SUE Clinicals and home health discharge orders faxed to [facility]. Pt returning to [facility] - awaiting transportation time from the [facility]. VIKRAM notified pt's son, Arnol. No further SW needs.
[2020-02-23 11:00] VITALS: BP 163/81
[2020-02-23] MEDS: ENOXAPARIN 40 MG/0.4 ML SYRINGE. SQ SCH (11:00)
[2020-02-23] MEDS ORDERED: ENOX40DI3 SQ (11:45)
--- NOTE | 2020-02-23 11:46 | SNU/HH DC ---
DISCHARGE WITH HOME HEALTH DISCHARGE INFORMATION: Final Diagnosis: Problems Medical Problems: (1) Closed left hip fracture Status: Acute (2) Fall Status: Acute (3) UTI (urinary tract infection) Status: Acute Condition on Discharge: Stable CODE STATUS: Code Status: Full HOME HEALTH: Face to Face: I certify this patient is under my care and that I, or a nurse practitioner or physician's desk assistant working with me, had a face to face encounter that meets the physician face to face encounter requirements with this patient on []. Medical Complications: Dementia Chcf For: Assess & Educate Safety RN For Eval/Treatment: Yes Physical Therapy For: Evalulation/Treatment Speech Language Pathology For: Evaluation/Treatment Home Health Aide For: Self-care SLITTER HELPER For: Community Resources Pt Meets Homebound Status: Poor coordination w/ amb. POST DISCHARGE ORDERS: DIET AFTER DISCHARGE: Cardiac CERTIFICATION STATEMENT: Certification Statement: Certification Statement: Based on the above finding, I certify that this patient is confined to the home and needs intermittent halfway care, physical therapy and/or speech therapy, or continues to need occupational therapy.~ This patient is under my care, and I have initiated the establishment of the plan of care.~ This patient will be followed by myself or a community physician who will periodically review the plan of care. Home Meds Reported Medications Acetaminophen (ACETAMINOPHEN) 325 Mg Tablet, 2 TAB PO QID PRN for pain or fever for 24 Days, #100 TAB 0 Refills 02/21/20 Melatonin (MELATONIN) 3 Mg Tablet, 6 MG PO HS for insomnia, TAB 02/21/20 Diltiazem Hcl (CARDIZEM TABLET) 60 Mg Tablet, 180 MG PO EVENING PRN for HYPERTE NSION, #30 TAB 0 Refills 02/21/20 Losartan Potassium (COZAAR ) 50 Mg Tablet, 50 MG PO DAILY, TAB 04/21/17 Discontinued Reported Medications Valacyclovir Hcl (VALTREX) 1,000 Mg Tablet, 2 TAB PO BID, #30 TAB 5 Refills 04/21/17 Tizanidine Hcl (TIZANIDINE HCL) 4 Mg Tablet, 1 TAB PO QHS, #30 TAB 04/21/17 Olopatadine Hcl (PATANOL) 5 Ml Drops, 1 DROP EACHEYE BID, #5 ML 1 Refill 04/21/17 Mupirocin Calcium (BACTROBAN CREAM) 15 Gm Cream..g., 1 KANG TP BID, #30 GM 04/21/17 [lidoderm patch] No Conflict Check, PRN for PAIN 04/21/17 Fluticasone Propionate (Flonase Allergy Relief) 9.9 Ml [place].susp, 2 SPRAYS NS DAILY, BOTTLE 04/21/17 Famotidine (PEPCID) 20 Mg Tablet, 20 MG PO BID, TAB 04/21/17 Ubidecarenone (COQ-10) 100 Mg Capsule, 200 MG PO DAILY, CAP 04/21/17 Azelastine Hcl (AZELASTINE HCL) 137 Mcg/0.137 Ml [place].pump, 2 SPRAY NS BID, #90 ML 3 Refills 04/21/17 Alprazolam (XANAX) 0.25 Mg Tablet, 1 TAB PO BID PRN for ANXIETY, #60 TAB 04/21/17 Acyclovir (ZOVIRAX) 5 Gm Cream..g., 1 KANG TP 5XDAY, #5 GM 1 Refill 04/21/17 RYLEE LESETR III DO Feb 23, 2020 11:46
--- NOTE | 2020-02-23 11:52 | PDOC ---
[employer] PROGRESS NOTE Date of Service DOS: DATE: 02/23/20 TIME: 11:49 Chief Complaint Chief Complaint Hip fracture History of Present Illness History of Present Illness 02/23/2020 Patient seen and examined in room resting comfortably. LEFT hip wound dressing clean, dry, and intact. Discussed with RN. Discussed with case management. 02/22/2020 Pt seen and examined in room resting comfortably Left hip wound dressing clean w/o bleeding DW RN DW child support case officer 02/21/2020 Patient seen and examined in the postop recovery area Discussed with RN Discussed with child support case officer Vitals/I&O Vitals/I&O: Vital Signs Date Time Temp Pulse Resp B/P (MAP) Pulse Ox O2 Delivery O2 Flow Rate FiO2 02/23/20 11:00 99.1 106 18 163/81 (108) 93 Room Air 99.1 I & O 02/22/20 02/22/20 02/23/20 15:00 23:00 07:00 Intake Total 200 ml Output Total 600 ml Balance 200 ml -600 ml Physical Exam Physical Exam: GENERAL: Alert, oriented female, not in distress. VITAL SIGNS: Stable, afebrile. HEENT: NAD. NECK: Supple, no JVP, no lymphadenopathy. LUNGS: Clear. HEART: S1, S2 regular. ABDOMEN: Soft, nontender, no organomegaly. EXTREMITIES: No edema, cyanosis. SKIN: Unremarkable. NEUROLOGIC: The patient is alert, awake. Memory is poor. Does move all the extremities. No focal deficit. General: Alert, Oriented X3, Cooperative Heart: Regular rate, Normal S1, Normal S2 Abdomen: Normal bowel sounds, Soft Extremities: No clubbing, No cyanosis Skin: No rashes, No breakdown Review of Systems Review of Systems: Denies N/V Denies dizziness Assessment and Plan Assessmemt and Plan Problems Medical Problems: (1) Closed left hip fracture Status: Acute (2) Fall Status: Acute (3) UTI (urinary tract infection) Status: Acute Assessment: LEFT hip fracture due to mechanical fall from standing. Acute UTI. Concern for left lower lobe pneumonia. Multiple falls. Dementia. Hypertension. Plan: Continue wound care. Continue IV fluids. DVT prophylaxis. Consult PT, OT. Subspecialty input appreciated. D/C today [facility] health. Comment Review of Relevant I have reviewed the following items reyes (where applicable) has been applied. Medications: Current Medications Medications (Trade) Dose Ordered Sig/Lesly Route PRN Reason Start Time Stop Time Status Last Admin Dose Admin Cefdinir (Omnicef) 300 mg BID PO 02/22/20 21:00 02/23/20 07:53 Lorazepam (Ativan Inj) 1 mg PRN Q4HRS PRN IVP ANXIETY / AGITATION 02/22/20 21:30 02/22/20 21:52 Losartan Potassium (Cozaar) 50 mg DAILY PO 02/23/20 09:00 02/23/20 07:53 Justifications for Admission Other Justification RYLEE LESTER III DO Feb 23, 2020 11:52
[2020-02-23] MEDS ORDERED: MULTIVITAMIN with MINERAL TABLET. PO SCH (12:00)
--- NOTE | 2020-02-27 14:00 | DS ---
DATE OF DISCHARGE: 02/23/2020 ADMISSION DIAGNOSIS: Left hip fracture. DISCHARGE DIAGNOSIS: Postoperative left hip fracture repair. HOSPITAL COURSE: The patient is a pleasant 84-year-old female who presented with hip fracture. She was admitted. We consulted Orthopedics. She was taken for ORIF. We also treated her UTI with IV antibiotics. Over the next few days, she returned to her baseline. We discharged to [facility] with home health. DISPOSITION: [facility] with home health. ACTIVITY: As tolerated. DIET: Low sodium. MEDICATIONS: Please see the MRAD. TOTAL TIME: 34 minutes. MARIANNAL Timothy LESTER DO DR: CHRIS/sandra JOB#: [id number] / [id number]
== END 2020-02-23 13:28 | disposition home health service (06) | DRG 853 ==
LOC: ER 15:01 → 4 NORTH 16:45
PROVIDERS: ADMIT Internal Medicine; ATTEND Internal Medicine
PROC: 0QS736Z Reposition Left Upper Femur with Intramedullary Internal Fixation Device, Percutaneous Approach (ICD-10-PCS; principal; 2020-02-21 10:00)
DX: A41.9 Sepsis, unspecified organism (principal); S72.142A Displaced intertrochanteric fracture of left femur, initial encounter for closed fracture; N39.0 Urinary tract infection, site not specified; J98.11 Atelectasis; F03.90 Unspecified dementia, unspecified severity, without behavioral disturbance, psychotic disturbance, mood disturbance, and anxiety; I10 Essential (primary) hypertension; R29.6 Repeated falls; Y92.007 Garden or yard of unspecified non-institutional (private) residence as the place of occurrence of the external cause; W18.39XA Other fall on same level, initial encounter; Y93.89 Activity, other specified; Y99.8 Other external cause status; Z20.828 Contact with and (suspected) exposure to other viral communicable diseases; Z79.899 Other long term (current) drug therapy
CPT/HCPCS: 36415; 71045; 71250; 73502; 76000; 80048; 80053; 81001; 82306; 83690; 83735; 84100; 84443; 84484; 85007; 85025; 85610; 87426; 93005; 96361; 96374; 96375; 96376; C1713; C1887; J0171; J0360; J0456; J0696; J1100; J1650; J1885; J2060; J2270; J2405; J2704; J2795; J3010; J3490; J7030; J7050; 97110-GP; 97530-GO; 97530-GP; 97535-GO; 99285-25; G0378; U0003-CS

== ENCOUNTER 2020-03-12 17:17 | Emergency (ER) | payer MEDICARE, OTHER ==
[~2020-03-12] VITALS: Ht 162.6 cm; Wt 65.0 kg
[~2020-03-12 17:17] MED LIST changes: +ACET325T21 PO; +DILT60TA3 PO; +ENOX40DI3 SQ; +MELA3TAB4 PO
--- NOTE | 2020-03-12 18:27 | RAD ---
Study: CR HIP LEFT 2V WITH PELVIS Indication: Left hip pain after a fall. Recent surgery. Comparison: 02/20/2020 Findings: Cephalomedullary nail with lag screw fixation of the left femur. The hardware is intact and there are no findings of loosening. Healing intervening intertrochanteric fracture deformity. A focus of ossification projecting below the femoral head/neck junction is most likely a displaced fracture fragment from the initial fracture. No new periprosthetic fractures identified. Left hip alignment is maintained. No acute fracture seen at the right hip or elsewhere throughout the pelvis though assessment is limited by osteopenia as well as due to bowel gas at several locations. Impression: Status post left femur cephalomedullary nailing. The hardware is intact. Alignment across the surgically fixated intertrochanteric fracture appears similar to the intraoperative radiographs from 02/21/2020. Taking into consideration osteopenia, no new fracture is identified. Electronically signed by: TREVOR HOBBS MD (03/12/2020 6:24 PM) [id number]
--- NOTE | 2020-03-12 19:07 | PHYS DOC ---
Past Medical History Past Medical History: Dementia, Hypertension, UTI Additional Past Medical Histor: FREQUENT FALLS (DIONTE CALLAHAN APRN) Past Surgical History: Other Additional Past Surgical Histo: Left hip surgery (DIONTE CALLAHAN APRN) Smoking Status: Never Smoker Alcohol Use: None (DIONTE CALLAHAN APRN) General Adult EDM: Chief Complaint: HIP PAIN HPI: HPI: Patient is a 84 year old female, brought to the emergency room via EMS today after a fall from her bed this afternoon. Patient resides at the [facility]. She states that she recently had surgery on her left hip and she is not sure why but today she fell off of the side of her bed. She complains of pain in her left hip that she currently rates a 7 out of 10 on the pain scale, the pain is worse with palpation and movement. She denies any other complaints. (DIONTE CALLAHAN APRN) Review of Systems: Review of Systems: Constitutional: Denies fever or chills. [] Musculoskeletal: Denies back pain; see HPI Integument: Denies rash. [] Complete ROS is negative unless otherwise stated in the HPI. (DIONTE CALLAHAN APRN) Heart Score: Risk Factors: Risk Factors: DM, Current or recent (<one month) smoker, HTN, HLP, family history of CAD, obesity. Risk Scores: Score 0 - 3: 2.5% MACE over next 6 weeks - Discharge Home Score 4 - 6: 20.3% MACE over next 6 weeks - Admit for Clinical Observation Score 7 - 10: 72.7% MACE over next 6 weeks - Early Invasive Strategies (DIONTE CALLAHAN APRN) Allergies: Allergies: Allergies Coded Allergies Type Severity Reaction Last Updated Verified Penicillins Allergy Intermediate 02/21/20 Yes amlodipine Allergy Intermediate 02/21/20 Yes citalopram Allergy Intermediate 02/21/20 Yes lisinopril Allergy Intermediate 02/21/20 Yes metoprolol Allergy Intermediate 02/21/20 Yes nitrofurantoin Allergy Intermediate 02/21/20 Yes (DIONTE CALLAHAN APRN) Physical Exam: PE: Constitutional: Well developed, well nourished, no acute distress, non-toxic appearance. [] HENT: Normocephalic, atraumatic, bilateral external ears normal, nose normal. [] Eyes: PERRLA, EOMI, conjunctiva normal, no discharge. [] Neck: Normal range of motion, no stridor. [] Cardiovascular:Heart rate regular rhythm Lungs & Thorax: Respirations even and unlabored, no retractions, no respiratory distress Skin: Warm, dry,; healing surgical incisions to left hip with blanca in place, no drainage, no bleeding, no warmth, no erythema Extremities: Left hip: Lateral tenderness to palpation, no obvious deformity, no crepitus, no cyanosis, unable to test ROM due to patient pain intolerance, no edema Neurologic: Alert and oriented X 3, no focal deficits noted. [] Psychologic: Affect normal, judgement normal, mood normal. [] (DIONTE CALLAHAN APRN) Current Patient Data: Vital Signs: Vital Signs Date Time Temp Pulse Resp B/P (MAP) Pulse Ox O2 Delivery O2 Flow Rate FiO2 03/12/20 17:20 98.9 90 18 180/91 (120) 96 Room Air 98.9 (DIONTE CALLAHAN APRN) EKG: EKG: [] (DIONTE CALLAHAN APRN) Radiology/Procedures: Radiology/Procedures: PROCEDURE: HIP LEFT 2V WITH PELVIS Study: CR HIP LEFT 2V WITH PELVIS Indication: Left hip pain after a fall. Recent surgery. Comparison: 02/20/2020 Findings: Cephalomedullary nail with lag screw fixation of the left femur. The hardware is intact and there are no findings of loosening. Healing intervening intertrochanteric fracture deformity. A focus of ossification projecting below the femoral head/neck junction is most likely a displaced fracture fragment from the initial fracture. No new periprosthetic fractures identified. Left hip alignment is maintained. No acute fracture seen at the right hip or elsewhere throughout the pelvis though assessment is limited by osteopenia as well as due to bowel gas at several locations. Impression: Status post left femur cephalomedullary nailing. The hardware is intact. Alignment across the surgically fixated intertrochanteric fracture appears similar to the intraoperative radiographs from 02/21/2020. Taking into consideration osteopenia, no new fracture is identified.[] (DIONTE CALLAHAN APRN) Course & Med Decision Making: Course & Med Decision Making Pertinent Labs and Imaging studies reviewed. (See chart for details) [] (DIONTE CALLAHAN APRN) Course & Med Decision Making I have reviewed the PA/QUANTITATIVE RESEARCH ANALYST's note and Plan of Care. I was available for consultation as needed during the patient's visit in the emergency department. I agree with the clinical impression, plans and disposition. (GHASSAN AL MD) Dragon Disclaimer: Dragon Disclaimer: This electronic medical record was generated, in whole or in part, using a voice recognition dictation system. (DIONTE CALLAHAN APRN) Departure Departure Impression: Primary Impression: Fall Qualified Codes: W19.XXXA - Unspecified fall, initial encounter Additional Impression: Acute pain of left hip Disposition: HOME, SELF-CARE Condition: STABLE Referrals: KARL HOOD DO (PCP) Patient Instructions: Hip Pain Additional Instructions: X-ray in the ER did not show any new fracture or dislocation. Follow up with your surgeon in 1-2 days, return to the ER if symptoms worsen. DIONTE CALLAHAN APRN Mar 12, 2020 19:07 GHASSAN AL MD Mar 12, 2020 20:33
[2020-03-12 20:00] VITALS: BP 165/85
== END 2020-03-12 20:20 | disposition home or self-care (01) ==
LOC: ER 17:17
DX: M25.552 Pain in left hip (principal); I10 Essential (primary) hypertension; F03.90 Unspecified dementia, unspecified severity, without behavioral disturbance, psychotic disturbance, mood disturbance, and anxiety; Z98.890 Other specified postprocedural states; Z88.0 Allergy status to penicillin; Z88.1 Allergy status to other antibiotic agents; Z88.8 Allergy status to other drugs, medicaments and biological substances
CPT/HCPCS: 73502; 99284